=== PATIENT | male | born 1965 | race Caucasian/White ===

== ENCOUNTER 2023-08-28 07:15 | Outpatient (OUT) | payer OTHER, SELFPAY ==
[2023-08-28 08:08] LABS: Alanine Aminotransferase 61 U/L (16-63); Albumin Globulin Ratio 1.3; Albumin Level 4.1 g/dL (3.4-5.0); Alkaline Phosphatase 85 U/L (46-116); Aspartate Amino Transferase 26 U/L (15-37); Bilirubin Direct 0.2 mg/dL (0.0-0.2); Bilirubin Total 0.7 mg/dL (0.2-1.0); Chol HDL Ratio 3.1; Cholesterol 172 mg/dL (<=200); Globulin 3.1 g/dL; HDL Cholesterol 55 mg/dL (40-60); LDL Cholesterol Calculated 95.4 mg/dL; Total Protein 7.2 g/dL (6.4-8.2); Triglycerides 108 mg/dL (<=150); VLDL CHOLESTEROL 21.6 mg/dL
== END 2023-08-28 07:16 | disposition home or self-care (01) ==
PROVIDERS: PCP Family Medicine; Visit Provider Nurse Practitioner
DX: R94.39 Abnormal result of other cardiovascular function study (principal); E78.2 Mixed hyperlipidemia
CPT/HCPCS: 36415; 80061; 80076

== ENCOUNTER 2024-09-26 08:22 | Outpatient (OUT) | payer OTHER, SELFPAY ==
--- OUTSIDE RECORDS SUMMARY | 2024-09-26 08:24 | XMS_ITS | CCD ---
Author Organization [facility] Care Team Providers Care Environmental Health Physician Name Role Phone JAYY ., DR MERINO Primary Care Unavailable NÉSTOR, SHRAVAN Admitting Unavailable NÉSTOR, SHRAVAN Attending Unavailable NÉSTORSHRAVAN Consulting Unavailable HOY ., DR MERINO Primary Care Unavailable HOY ., DR MERINO Admitting Unavailable HOY ., DR MERINO Attending Unavailable HOY ., DR MERINO Consulting Unavailable HOY ., DR MERINO Primary Care Unavailable HOY ., DR MERINO Admitting Unavailable HOY ., DR MERINO Attending Unavailable HOY ., DR MERINO Consulting Unavailable HOY ., DR MERINO Primary Care Unavailable HOY ., DR MERINO Admitting Unavailable HOY ., DR MERINO Attending Unavailable ALGMALINI, ESTELLE Attending Unavailable ALGMALINI, ESTELLE Attending Unavailable Wilber Lou MD Primary Care Provider [phone] BREANNA CARDOZO Attending Unavailable CARDOZO, BREANNA Adkins Referring Unavailable CARDOZO, BREANNA Adkins Attending Unavailable CARDOZO, BREANNA Adkins Referring Unavailable CARDOZO, BREANNA Adkins Attending Unavailable CARDOZO, BREANNA Adkins Attending Unavailable CARDOZO, BREANNA Adkins Attending Unavailable Allergies Allergy Classification Reported Allergen(s) Allergy Type Date of Onset Reaction(s) Facility (8 sources) atorvastatin; Translations: [ATORVASTATIN] Drug Allergy 04-04-2024 [facility] Repository Medications Current Medications Medication Drug Class(es) Dates Sig (Normalized) Sig (Original) aspirin 81 mg delayed release oral tablet (7 sources) Platelet Aggregation Inhibitor, Nonsteroidal Anti-inflammatory Drug Start: 04-09-2024 aspirin 81 MG EC tablet 1 (one) time each day at the same time 04/09/2024 Active hydroCHLOROthiazide 25 mg / losartan potassium 100 mg oral tablet (7 sources) Thiazide Diuretic, Angiotensin 2 Receptor Mary Start: 02-18-2024 losartan-hydroCHLO ROthiazide (Hyzaar) 100-25 MG tablet 02/18/2024 Active meloxicam 15 mg oral tablet (7 sources) Nonsteroidal Anti-inflammatory Drug Start: 12-07-2023 End: 12-06-2024 take 1 tablet by mouth in the morning meloxicam (Mobic) 15 MG tablet Indications: Primary osteoarthritis of both knees Take 1 tablet (15 mg) by mouth in the morning. 90 tablet 3 12/07/2023 12/06/2024 Active mirtazapine 30 mg oral tablet (3 sources) Start: 07-22-2024 mirtazapine (Remeron) 30 MG tablet 07/22/2024 Active rosuvastatin calcium 10 mg oral tablet (3 sources) HMG-CoA Reductase Inhibitor Start: 06-11-2024 rosuvastatin (Crestor) 10 MG tablet 06/11/2024 Active Completed/Discontinued Medications Medication Drug Class(es) Dates Sig (Normalized) Sig (Original) 2 ml hylan g-f 20 8 mg/ml prefilled syringe (8 sources) Start: 08-14-2024 End: 08-14-2024 hylan (Synvisc) injection 2 mL Start: 08-14-2024 End: 08-14-2024 2 mL, Once PRN Procedure, St arting on Iesha 08/14/24 at 1117, For 1 dose Start: 08-07-2024 End: 08-07-2024 hylan (Synvisc) injection 16 mg Start: 08-07-2024 End: 08-07-2024 16 mg, Once PRN Procedure, S tarting on Iesha 08/07/24 at 1506, For 1 dose Problems Problem Classification Problem Date Documented Date Episodic/Chronic Joint disorders and dislocations; trauma-related (2 sources) Acute tear of medial meniscus of right knee; Translations: [Other tear of medial meniscus, current injury, right knee, subsequent encounter] 07-31-2024 Episodic Nonspecific chest pain (4 sources) Chest pain, unspecified; Translations: [CHEST PAIN UNSPECIFIED] Onset: 02-07-2023 Episodic Osteoarthritis (5 sources) Primary gonarthrosis, bilateral; Translations: [Bilateral primary osteoarthritis of knee] 07-31-2024 Chronic Other screening for suspected conditions (not mental disorders or infectious disease) (2 sources) Abnormal result of other cardiovascular function study; Translations: [Encounter for screening for malignant neoplasm of prostate] Onset: 10-18-2022 Episodic Results Test Name Value Interpretation Reference Range Facility L Inj/Asp: bilateral kneeon 08-14-2024 Shernie Sainz MA 08/14/2024 12:04 PM L Inj/Asp: bilateral knee on 08/14/2024 11:17 AM Indications: pain Details: 22 G needle Medications (Right): 2 mL hylan 16 MG/2ML Medications (Left): 2 mL hylan 16 MG/2ML Consent was given by the patient. [facility] L Inj/Asp: bilateral kneeon 08-07-2024 Jessica FRANCINE Maddox 08/07/2024 3:30 PM L Inj/Asp: bilateral knee on 08/07/2024 3:06 PM Indications: pain Details: 22 G needle Medications (Right): 16 mg hylan 16 MG/2ML Medications (Left): 16 mg hylan 16 MG/2ML [facility] MR KNEE RIGHT WO IV CONTRAST on 07-11-2024 MR KNEE RIGHT WO IV CONTRAST Exam: MR KNEE RIGHT WO IV CONTRAST History: Knee pain Technique: Multiplanar multisequence MRI of the knee was performed without contrast. Comparison: Radiographs May 20, 2024 Findings: Quadriceps and patellar tendons are intact. Small joint effusion. Mild nonspecific prepatellar/infrapate llar subcutaneous soft tissue edema. Anterior and posterior cruciate ligaments are intact. Thin 12 mm intrasubstance ganglion within the proximal ACL. The medial collateral ligament, lateral collateral ligament, and popliteus are intact. Complex tear of the body through posterior horn of the medial meniscus including flap tear of the body with displaced meniscus flap located inferiorly along the periphery of the medial tibial plateau. The lateral meniscus is intact. No well-defined or measurable cartilage defect. Popliteal fossa structures are intact. No Campos cyst. IMPRESSION: Complex tear of the body through posterior horn of the medial meniscus. ELECTRONICALLY SIGNED BY: Papi Cerrato, DO Normal Not Available Comment on above: Order Comment: No to all MRI questions Office Visiton 04-04-2024 Follow-up visit [id number] Tree Helms 1965 M Date Provider Department Center 04/04/2024 [facility] Family History Problem Relation Age of Onset Coronary artery disease Father Other Father Coronary artery disease Sister Other Sister Coronary artery disease Paternal Grandfather Family Status - Relation Status Age at Father Sister Paternal Grandfather Level of Service:28599 [place] OFFICE/OUTPATIENT ESTABLISHED MOD MDM 30 MIN Normal [facility] Office Visiton 10-26-2023 Follow-up visit [id number] Tree Helms 1965 M Date Provider Department Center 10/26/2023 [facility]-ESTELLE [facility] Family History Problem Relation Age of Onset Coronary artery disease Father Other Father Coronary artery disease Sister Other Sister Coronary artery disease Paternal Grandfather Family Status - Relation Status Age at Father Sister Paternal Grandfather Level of Service:78712 [place] OFFICE/OUTPATIENT ESTABLISHED MOD MDM 30 MIN Normal [facility] ECHOCARDIO M/2D COMPLETEon 0 03-13-2023 ECHOCARDIO M/2D COMPLETE Patient: TREE HELMS. Exam Date: 03/13/2023 : 1965 Gender:M Ordering : SHRAVAN PALM Admission #: [id number] Family : Order #: [id number] CLICK HERE TO VIEW EXAM ECHOCARDIOGRAM REPORT PROCEDURE: CARDIO PULMONARY ECHOCARDIO M/2D COMP INDICATIONS: Abnormal cardiovascular stress test, Primary HTN, Chest pain COMPARISON: None. DESCRIPTION: COMPLETE ECHOCARDIOGRAM Real-time transthoracic echocardiography with 2D, M-mode, spectral and color flow Doppler performed. QUALITY: Technical quality was good. LEFT VENTRICLE: Normal chamber size. Moderate concentric left ventricular hypertrophy. Global left ventricular systolic function is normal. LV EF: Calculated left ventricular ejection fraction is 60% DIASTOLIC: Normal diastolic function. ATRIAL SEPTUM: LEFT ATRIUM: Normal chamber size. RIGHT ATRIUM: Normal chamber size. RIGHT VENTRICLE: Normal chamber size. Normal right ventricular systolic function. TRICUSPID VALVE: Normal mobility and thickness. No stenosis with mild regurgitation. No evidence of pulmonary hypertension. RVSP 25 mmHg MITRAL VALVE: Normal mobility and thickness. No evidence of mitral valve stenosis. There is no mitral annular calcification. No mitral regurgitation. AORTIC VALVE: Normal trileaflet appearance. No visible sclerosis. Normal leaflet mobility. No evidence of aortic valve stenosis. Trivial aortic regurgitation. AORTIC ROOT: Normal diameter and appearance. PULMONIC VALVE: Normal thickness and mobility. No stenosis. Trivial regurgitation. PERICARDIUM: No evidence of pericardial effusion. IVC: Collapses with inspirations. Normal size PLEURA: CONCLUSION: 1. Moderate concentric left ventricular hypertrophy. Normal LV systolic function. LVEF is 60%. 2. Normal diastolic function. 3. Normal right ventricular size and systolic function. 4. Mild tricuspid regurgitation. 5. Normal right-sided pressures. Adult Echocardiography Procedure Report Left Ventricle LVEDD (3.7 - 5.6 cm): 4.24 cm LVESD (2.2 - 4.0 cm): 3.00 cm LVIVS thickness (0.6 - 1.2 cm): 1.57 cm LVPW thickness (0.5 - 1.0 cm): 1.38 cm e': 0.11 m/s E - e': 5.62 LVOT Max Gradient: 3.97 mm[Hg] Peak Velocity (LVOT): 1.00 m/s Mean Velocity (LVOT): 0.68 m/s LVOT Diameter 2.10 cm Left Ventricular Ejection Fraction: 60 % Left Atrium LA Volume Index (2D A2C): 60.06 ml, 60.06 ml Left Atrium Systolic Dimension: 3.54 cm Mitral Valve MV E to A Ratio: 1.09 Mitral Valve A-Wave Peak Velocity: 0.55 m/s Mitral Valve E-Wave Peak Velocity: 0.60 m/s Right Ventricle RV Internal Diastolic Dimension: 4.02 cm Aorta AO Root Diam: 3.19 cm Ascending Ao Diam: 3.12 cm Aortic Valve AoV Area (Peak Jose): 3.10 cm2, 3.10 cm2 AoV Area (VTI): 3.20 cm2, 3.20 cm2 Peak Velocity(Antegrade Flow): 1.12 m/s Peak Gradient(Antegrade Flow): 4.98 mm[Hg] Mean Velocity(Antegrade Flow): 0.75 m/s Mean Gradient(Antegrade Flow): 2.57 mm[Hg] Velocity Time Integral: 23.90 cm Tricuspid Valve Peak Velocity (Regurgitant Flow): 2.37 m/s, 2.30 m/s, 2.36 m/s Peak Velocity: 0.64 m/s Pulmonic Valve Mean Gradient: 2.48 mm[Hg] Mean Velocity: 0.70 m/s Peak Velocity: 1.26 m/s, 1.29 m/s Peak Gradient: 6.63 mm[Hg], 6.31 mm[Hg] Right Atrium Right Atrium Systolic Pressure: 67.73 ml, 67.73 ml Dictated by: Lamont Wetzel M.D. on 03/13/2023 at 20:06 Approved by: Lamont Wetzel M.D. on 03/13/2023 at 20:10 Normal [facility] NM STRESS/REST MULTIon 02-07 NM STRESS/REST MULTI Patient: ESTRELLITA HELMS Exam Date: 02/07/2023 : 1965 Gender:M Ordering : DR WILBER LOU . Admission #: [id number] Family : Order #: [id number] CLICK HERE TO VIEW EXAM RADIOLOGY REPORT PROCEDURE: RADIONUCLIDE IMAGING STRESS/REST MULTI COMPARISON: None. INDICATIONS: Chest pain TECHNIQUE: Exam Description: Stress/Rest one day protocol gated SPECT Rest Imagin.1 mCi Tc-99m Cardiolite IV on 02/07/2023 Stress Imaging 30.9 mCi Tc-99m Cardiolite IV on 02/07/2023 Exercise Protocol: Samuel Heart Rate (bpm): Rest: 61 Max: 142 PMHR: 87 Blood Pressure: Rest: 124/86 Max: 204/92 Exercise Time: Minutes: 10 Seconds: 30 Stage Reached: Stage: 4 Mets 11.4 Symptoms: Rest and peak stress ECG findings were abnormal and the exercise portion of the study was abnormal per attending physician Dr. Burroughs due to EKG changes. For more details please see separate cardiac stress test report. FINDINGS: QUALITY OF STUDY: Excellent. PERFUSION DEFECT: None. LOCATION: N/A SIZE: N/A. SEVERITY: N/A. TYPE: N/A. WALL MOTION: Normal. LV SIZE: Normal. 89 mL. TID / TCD: None; 0.9 LVEF: Normal. Calculated EF 68%. SUMMARY: Myocardial perfusion imaging study is NORMAL. CONCLUSION: 1. Normal myocardial perfusion scan with no reversible ischemia 2. Abnormal exercise test due to EKG changes Dictated by: Harrison Person MD on 02/12/2023 at 09:06 Approved by: Harrison Person MD on 02/12/2023 at 09:09 Normal [facility] INSULINon 10-14-2022 Insulin 14.4 uIU/mL Normal 2.6-24.9 [facility] Comment on above: Performed By: #### I NSULIN #### [facility] [address] [address] [address] Marlen Vera CBC AUTO DIFFon 10-13-2022 BASO # 0.1 103/ul Normal 0.0-0.1 [facility] Comment on above: Performed By: #### C BC #### [facility] [address] [address] [address] Marlen Vera Basophils/100 WBC (Bld) 0.7 % Normal 0.2-2.0 [facility] Comment on above: Performed By: #### C BC #### [facility] [address] [place] [address] Dr. Marlen Vera EO # 0.6 103/ul Normal 0.0-0.7 [facility] Comment on above: Performed By: #### C BC #### [facility] [address] [place] [address] Dr. Marlen Vera Eosinophils/100 WBC (Bld) 7.9 % Critically high 0.9-7.0 [facility] Comment on above: Performed By: #### C BC #### [facility] [address] [address] [address] Marlen Vera Erythrocyte distribution width (RBC) [Ratio] 12.1 % Normal 11.0-15.0 [facility] Comment on above: Performed By: #### C BC #### [facility] [address] [place] [address] Dr. Marlen Vera Hematocrit (Bld) [Volume fraction] 43.3 % Normal 42.0-54.0 [facility] Comment on above: Performed By: #### C BC #### [facility] [address] [address] [address] Marlen Vera Hemoglobin (Bld) [Mass/Vol] 15.2 g/dL Normal 14.0-18.0 [facility] Comment on above: Performed By: #### C BC #### [facility] [address] [place] [address] Dr. Marlen Vera IG # 0.03 10e3/ul Normal 0.00-0.03 [facility] Comment on above: Performed By: #### C BC #### [facility] [address] [place] [address] Dr. Marlen Vera IG % 0.4 % Normal 0.0-0.5 [facility] Comment on above: Performed By: #### C BC #### [facility] [address] [place] [address] Dr. Marlen Vera LYMPH # 2.2 103/ul Normal 1.2-3.8 [facility] Comment on above: Performed By: #### C BC #### [facility] [address] [place] [address] Dr. Marlen Vera Lymphocytes/100 WBC (Bld) 29.5 % Normal 20.5-60.0 [facility] Comment on above: Performed By: #### C BC #### [facility] [address] [place] [address] Dr. Marlen Vera MANUAL DIFF REQ NO Normal [facility] Comment on above: Performed By: #### C BC #### [facility] [address] [place] [address] Dr. Marlen Vera MCH (RBC) [Entitic mass] 31.1 pg Normal 25.9-34.0 [facility] Comment on above: Performed By: #### C BC #### [facility] [address] [place] [address] Dr. Marlen Vera MCHC (RBC) [Mass/Vol] 35.1 g/dL Normal 29.9-35.2 [facility] Comment on above: Performed By: #### C BC #### [facility] [address] [place] [address] Dr. Marlen Vera MCV (RBC) [Entitic vol] 88.5 fL Normal 80.0-94.0 [facility] Comment on above: Performed By: #### C BC #### [facility] [address] [place] [address] Dr. Marlen Vera MONO # 0.7 103/ul Normal 0.3-0.8 [facility] Comment on above: Performed By: #### C BC #### [facility] [address] [place] [address] Dr. Marlen Vera Monocytes/100 WBC (Bld) 8.9 % Normal 1.7-12.0 [facility] Comment on above: Performed By: #### C BC #### [facility] [address] [place] [address] Dr. Marlen Vera NEUT # 3.9 103/ul Normal 1.4-6.5 [facility] Comment on above: Performed By: #### C BC #### [facility] [address] [place] [address] Dr. Marlen Vera Neutrophils/100 WBC (Bld) 52.6 % Normal 43.0-75.0 [facility] Comment on above: Performed By: #### C BC #### [facility] [address] [place] [address] Dr. Marlen Vera Platelet mean volume (Bld) [Entitic vol] 10.0 fL Normal 9.5-13.5 [facility] Comment on above: Performed By: #### C BC #### [facility] [address] [place] [address] Dr. Marlen Vera PLT 168 103/ul Normal 150-450 [facility] Comment on above: Performed By: #### C BC #### [facility] [address] [place] [address] Dr. Marlen Vera RBC 4.89 106/ul Normal 4.70-6.10 [facility] Comment on above: Performed By: #### C BC #### [facility] [address] [place] [address] Dr. Marlen Vera WBC 7.3 103/ul Normal 4.0-11.0 [facility] Comment on above: Performed By: #### C BC #### [facility] [address] [place] [address] Dr. Marlen Vera GLYCOHEMOGLOBIN A1Con 2021 ADA RECOMMENDATION SEE BELOW Normal [facility] Comment on above: Result Comment: ADA RECOMMENDED LIMIT 4.0 - 6.0 ADA THERAPEUTIC TARGET < 7.0 ACTION SUGGESTED > 7.0 Performed By: #### A 1C #### [facility] [address] [address] [address] Marlen Vera Glucose [Mass/Vol] 114 mg/dL Normal [facility] Comment on above: Performed By: #### A 1C #### [facility] [address] [address] [address] Marlen Vera HbA1c (Bld) [Mass fraction] 5.6 % Normal 4.5-6.2 [facility] Comment on above: Performed By: #### A 1C #### [facility] [address] [address] [address] Marlen Vera LIPID PROFILEon 10-13-2022 CHOL-HDL RATIO NORM SEE BELOW Normal [facility] Comment on above: Result Comment: 3.3 - 4.4 LOW RISK 4.4 - 7.1 AVERAGE RISK 7.1 - 11.0 MODERATE RISK >11.0 HIGH RISK Performed By: #### L IPID, URIC, CMP #### [facility] [address] [address] [address] Marlen Vera Cholesterol [Mass/Vol] 194 mg/dL Normal <=200 [facility] Comment on above: Performed By: #### L IPID, URIC, CMP #### [facility] [address] [place] [address] Dr. Marlen Vera Cholesterol in HDL [Mass/Vol] 50 mg/dL Normal 40-60 [facility] Comment on above: Performed By: #### L IPID, URIC, CMP #### [facility] [address] [address] [address] Marlen Vera Cholesterol in LDL [Mass/Vol] 122.4 mg/dL Normal [facility] Comment on above: Performed By: #### L IPID, URIC, CMP #### [facility] [address] [place] [address] Dr. Marlen Vera Cholesterol.total/Ch olesterol in HDL [Mass ratio] 3.9 {ratio} Normal [facility] Comment on above: Performed By: #### L IPID, URIC, CMP #### [facility] [address] [address] [address] Marlen Vera HDL NORMAL > or = 60 mg/dl - LO W CARDIOVASCULAR RISK <40 mg/dl - HIGH CARDIOVASCULAR RISK Normal [facility] Comment on above: Performed By: #### L IPID, URIC, CMP #### [facility] [address] [address] [address] Marlen Vera LDL CALC NORMAL SEE BELOW Normal [facility] Comment on above: Result Comment: <100 mg/dl OPTIMAL 100 - 129 mg/dl NEAR OR ABOVE OPTIMAL 130 - 159 mg/dl BORDERLINE HIGH 160 - 189 mg/dl HIGH >190 mg/dl VERY HIGH Performed By: #### L IPID, URIC, CMP #### [facility] [address] [place] [address] Dr. Marlen Vera Triglyceride [Mass/Vol] 108 mg/dL Normal <=150 [facility] Comment on above: Performed By: #### L IPID, URIC, CMP #### [facility] [address] [place] [address] Dr. Marlen Vera VLDL CALC 21.6 mg/dL Normal [facility] Comment on above: Performed By: #### L IPID, URIC, CMP #### [facility] [address] [place] [address] Dr. Marlen Vera PROF 14(COMP METB)on 022 Albumin [Mass/Vol] 4.0 g/dL Normal 3.4-5.0 [facility] Comment on above: Performed By: #### L IPID, URIC, CMP #### [facility] [address] [place] [address] Dr. Marlen Vera Albumin/Globulin [Mass ratio] 1.3 {ratio} Normal [facility] Comment on above: Performed By: #### L IPID, URIC, CMP #### [facility] [address] [place] [address] Dr. Marlen Vera ALP [Catalytic activity/Vol] 71 U/L Normal 46-116 [facility] Comment on above: Performed By: #### L IPID, URIC, CMP #### [facility] [address] [place] [address] Dr. Marlen Vera ALT [Catalytic activity/Vol] 29 U/L Normal 16-63 [facility] Comment on above: Performed By: #### L IPID, URIC, CMP #### [facility] [address] [address] [address] Mareln Vera Anion gap [Moles/Vol] 10.4 mmol/L Normal [facility] Comment on above: Performed By: #### L IPID, URIC, CMP #### [facility] [address] [address] [address] Marlen Vera AST [Catalytic activity/Vol] 17 U/L Normal 15-37 [facility] Comment on above: Performed By: #### L IPID, URIC, CMP #### [facility] [address] [place] [address] Dr. Marlen Vera Bilirubin [Mass/Vol] 0.6 mg/dL Normal 0.2-1.0 [facility] Comment on above: Performed By: #### L IPID, URIC, CMP #### [facility] [address] [place] [address] Dr. Marlen Vera Calcium [Mass/Vol] 9.3 mg/dL Normal 8.5-10.1 [facility] Comment on above: Performed By: #### L IPID, URIC, CMP #### [facility] [address] [place] [address] Dr. Marlen Vera Chloride [Moles/Vol] 102 mmol/L Normal 98-107 [facility] Comment on above: Performed By: #### L IPID, URIC, CMP #### [facility] [address] [place] [address] Dr. Marlen Vera CO2 [Moles/Vol] 28.8 mmol/L Normal 21.0-32.0 [facility] Comment on above: Performed By: #### L IPID, URIC, CMP #### [facility] [address] [place] [address] Dr. Marlen Vera Creatinine [Mass/Vol] 0.80 mg/dL Normal 0.70-1.30 [facility] Comment on above: Performed By: #### L IPID, URIC, CMP #### [facility] [address] [address] [address] Marlen Vera EGFR-AF ISRAELI >60 Normal >=60 [facility] Comment on above: Performed By: #### L IPID, URIC, CMP #### [facility] [address] [address] [address] Marlen Vera EGFR-NON AF ISRAELI >60 Normal >=60 [facility] Comment on above: Performed By: #### L IPID, URIC, CMP #### [facility] [address] [address] [address] Marlen Vera Globulin (S) [Mass/Vol] 3.2 g/dL Normal [facility] Comment on above: Performed By: #### L IPID, URIC, CMP #### [facility] [address] [address] [address] Marlen Vera Glucose [Mass/Vol] 112 mg/dL Critically high 74-106 [facility] Comment on above: Performed By: #### L IPID, URIC, CMP #### [facility] [address] [address] [address] Marlen Vera Potassium [Moles/Vol] 4.2 mmol/L Normal 3.5-5.1 [facility] Comment on above: Performed By: #### L IPID, URIC, CMP #### [facility] [address] [address] [address] Marlen Vera Protein [Mass/Vol] 7.2 g/dL Normal 6.4-8.2 [facility] Comment on above: Performed By: #### L IPID, URIC, CMP #### [facility] [address] [address] [address] Marlen Vera Sodium [Moles/Vol] 137 mmol/L Normal 136-145 [facility] Comment on above: Performed By: #### L IPID, URIC, CMP #### [facility] [address] [address] [address] Marlen Vera Urea nitrogen [Mass/Vol] 15.0 mg/dL Normal 7.0-18.0 [facility] Comment on above: Performed By: #### L IPID, URIC, CMP #### [facility] [address], [place] [address] Dr. Marlen Vera Urea nitrogen/Creatinine [Mass ratio] 18.8 mg/mg Normal [facility] Comment on above: Performed By: #### L IPID, URIC, CMP #### [facility] [id number] Marlen Vera URIC ACID SERUMon 10-13-2022 Urate [Mass/Vol] 5.9 mg/dL Normal 3.5-7.2 [facility] Comment on above: Performed By: #### L IPID, URIC, CMP #### [facility] [address] [address] [address] Marlen Vera Vital Signs Date Time Vital Sign Value Performing Clinician Faci lity 08-14-2024 11:14-0400 Body height 177.8 cm Breanna Cardozo DO Work Phone: [facility] 08-14-2024 11:14-0400 Body mass index (BMI) [Ratio] 32.28 kg/m2 Breanna Truckily DO Work Phone: [facility] 08-14-2024 11:14-0400 Body weight 102.06 kg Breanna Cardozo DO Work Phone: [facility] 08-07-2024 15:04-0400 Body height 177.8 cm Breanna Cardozo DO Work Phone: [facility] 08-07-2024 15:04-0400 Body mass index (BMI) [Ratio] 32.28 kg/m2 Breanna Cardozo DO Work Phone: [facility] 08-07-2024 15:04-0400 Body weight 102.06 kg Breanna Cardozo DO Work Phone: [facility] 07-31-2024 13:57-0400 Body height 177.8 cm Breanna Cardozo DO Work Phone: [facility] 07-31-2024 13:57-0400 Body mass index (BMI) [Ratio] 32.28 kg/m2 Breanna Beatrice DO Work Phone: [facility] 07-31-2024 [id number] Body weight 102.06 kg Breanna Cardozo DO Work Phone: [facility] Encounters Encounter Date Encounter Type Care Provider Facility Start: 08-14-2024 End: 08-14-2024 Bamboo flowsheet Breanna Cardozo DO Work Phone: [facility] Start: 08-14-2024 End: 08-14-2024 Bamboo flowsheet Breanna Cardozo DO Work Phone: [facility] Start: 08-14-2024 End: 08-14-2024 Patient encounter procedure Breanna Cardozo DO Work Phone: [facility] Comment on above: Bilateral primary os teoarthritis of knee (Primary Dx) Start: 08-14-2024 End: 08-14-2024 ambulatory BREANNA CARDOZO Not Available Start: 08-07-2024 End: 08-07-2024 Patient encounter procedure Breanna Cardozo DO Work Phone: [facility] Comment on above: Bilateral primary os teoarthritis of knee (Primary Dx) Start: 08-07-2024 End: 08-07-2024 ambulatory BREANNA CARDOZO Not Available Start: 08-07-2024 End: 08-07-2024 Bamboo flowsheet Breanna Cardozo DO Work Phone: [facility] Start: 08-07-2024 End: 08-07-2024 Bamboo flowsheet Breanna Cardozo DO Work Phone: [facility] Start: 07-31-2024 End: 07-31-2024 Bamboo flowsheet Breanna Cardozo DO Work Phone: [facility] Start: 07-31-2024 End: 07-31-2024 Bamboo flowsheet Breanna Cardozo DO Work Phone: [facility] Start: 07-31-2024 End: 07-31-2024 ambulatory BREANNA CARDOZO Not Available Start: 07-31-2024 End: 07-31-2024 Patient encounter procedure Breanna Cardozo DO Work Phone: [facility] Comment on above: Bilateral primary os teoarthritis of knee (Primary Dx); Acute medial meniscus tear of right knee, subsequent encounter Start: 07-11-2024 End: 07-11-2024 ambulatory BREANNA CARDOZO Not Available Start: 06-03-2024 End: 06-03-2024 ambulatory BREANNA CARDOZO Not Available Start: 05-20-2024 End: 05-20-2024 ambulatory BREANNA CARDOZO Not Available Start: 04-04-2024 End: 04-04-[address] [facility] Start: 10-26-2023 End: 10-26-[address] [facility] Start: 03-13-2023 End: 03-14-[address] WILBER LOU . Facility: Start: 02-07-2023 End: 02-08-[address] WILBER LOU . Facility:[facility] Start: 01-16-2023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
[2024-09-26 09:09] LABS: Chol HDL Ratio 3.4; Cholesterol 175 mg/dL (<=200); HDL Cholesterol 52 mg/dL (40-60); LDL Cholesterol Calculated 104.6 mg/dL; Triglycerides 92 mg/dL (<=150); VLDL CHOLESTEROL 18.4 mg/dL
[2024-09-26 09:16] LABS: Alanine Aminotransferase 36 U/L (16-63); Albumin Globulin Ratio 1.3; Albumin Level 3.8 g/dL (3.4-5.0); Alkaline Phosphatase 82 U/L (46-116); Anion Gap 11.8; Aspartate Amino Transferase 18 U/L (15-37); BUN Creatinine Ratio 10.4; Bilirubin Total 0.6 mg/dL (0.2-1.0); Carbon Dioxide 30.1 mmol/L (21.0-32.0); Chloride 104 mmol/L (98-107); Estimated GFR (African America >60 (>=60 mL/min/1.73m^2); Estimated GFR (Non-African Ame >60 (>=60 mL/min/1.73m^2); Globulin 2.9 g/dL; Glucose 110 mg/dL (74-106); Potassium 3.9 mmol/L (3.5-5.1); Sodium 142 mmol/L (136-145); Total Protein 6.7 g/dL (6.4-8.2)
== END 2024-09-26 08:23 | disposition home or self-care (01) ==
LOC: LAB 08:22
PROVIDERS: PCP Family Medicine; Visit Provider Internal Medicine Cardiovascular Disease
DX: E78.5 Hyperlipidemia, unspecified (principal)
CPT/HCPCS: 36415; 80053; 80061

== ENCOUNTER 2025-02-09 06:21 | Outpatient (OUT) | payer OTHER, SELFPAY ==
--- OUTSIDE RECORDS SUMMARY | 2025-02-09 06:26 | XMS_ITS | CCD ---
Author Organization [facility] Care Team Providers Care Roofing Supervisor Name Role Phone JAYY ., DR MERINO Primary Care Unavailable NÉSTOR, SHRAVAN Admitting Unavailable NÉSTOR, SHRAVAN Attending Unavailable NÉSTOR, SHRAVAN Consulting Unavailable HOY ., DR MERINO Primary [...] Unavailable HOY ., DR MERINO Attending Unavailable Mansoory Wilber HANCOCK Primary Care Provider [phone] BREANNA CARDOZO Attending Unavailable CARDOZO, BREANNA Adkins Referring Unavailable CARDOZO, BREANNA Adkins Attending Unavailable CARDOZO, BREANNA Adkins Referring Unavailable CARDOZO, BREANNA Adkins Attending Unavailable CARDOZO, BREANNA Adkins Attending Unavailable CARDOZO, BREANNA Adkins Attending Unavailable LUISANA, ESTELLE Attending Unavailable ALGMALINI, ESTELLE Attending Unavailable LUISANA, ESTELLE Attending Unavailable Unavailable Primary Care Provider Unavailabl e Allergies Allergy Classification Reported Allergen(s) Allergy Type Date of Onset Reaction(s) Facility (9 sources) atorvastatin; Translations: [ATORVASTATIN] Drug Allergy 04-04-2024 [facility] Healthcare Medications Current Medications Medication Drug Class(es) Dates Sig (Normalized) Sig (Original) aspirin 81 mg delayed release oral tablet (8 sources) Platelet Aggregation Inhibitor, Nonsteroidal Anti-inflammatory Drug Start: 04-09-2024 aspirin 81 MG EC tablet 1 (one) time each day at the same time 04/09/2024 Active hydroCHLOROthiazide 25 mg / losartan potassium 100 mg oral tablet (8 sources) Thiazide Diuretic, Angiotensin 2 Receptor Mary Start: 02-18-2024 losartan-hydroCHLO ROthiazide (Hyzaar) 100-25 MG tablet 02/18/2024 Active meloxicam 15 mg oral tablet (8 sources) Nonsteroidal Anti-inflammatory Drug Start: 12-07-2023 End: [...] Test Name Value Interpretation Reference Range Facility Office Visiton 10-09-2024 Follow-up visit [id number] Tree Helms 1965 M Date Provider Department Center 10/09/2024 3848-LUISANA JOHNSUNSHINE CARD [facility] Family History Problem Relation Age of Onset Coronary artery disease Father Other Father Coronary artery disease Sister Other Sister Coronary artery disease Paternal Grandfather Family Status - Relation Status Age at Father Sister Paternal Grandfather Level of Service:04255 [place] OFFICE/OUTPATIENT ESTABLISHED MOD MDM 30 MIN Normal [facility] L Inj/Asp: bilateral kneeon 08-14-2024 Sherine Sainz MA 08/14/2024 12:04 PM L Inj/Asp: bilateral knee on 08/14/2024 11:17 AM Indications: pain Details: 22 G needle Medications (Right): 2 mL hylan 16 MG/2ML Medications (Left): 2 mL hylan 16 MG/2ML Consent was given by the patient. [facility] L Inj/Asp: bilateral kneeon 08-07-2024 Jessica Maddox MA 08/07/2024 3:30 PM L Inj/Asp: bilateral knee on 08/07/2024 3:06 PM Indications: pain Details: 22 G needle Medications (Right): 16 mg hylan 16 MG/2ML Medications (Left): 16 mg hylan 16 MG/2ML [facility] MR KNEE RIGHT WO IV CONTRAST on [...] of the medial meniscus. ELECTRONICALLY SIGNED BY: DO Santiago Balderas Not Available Comment on above: Order Comment: No to all MRI questions Office Visiton 04-04-2024 Follow-up visit [id number] Tree Helms 1965 M Date Provider Department [facility] Problem Relation Age of Onset Coronary artery disease Father Other Father Coronary artery disease Sister Other Sister Coronary artery disease Paternal Grandfather Family Status - Relation Status Age at Father Sister Paternal Grandfather Level of Service:94716 [place] OFFICE/OUTPATIENT ESTABLISHED MOD MDM 30 MIN Normal [facility] Office Visiton 10-26-2023 Follow-up visit [id number] Tree Helms 1965 M Date Provider Department [facility] Family History Problem Relation Age of Onset Coronary artery disease Father Other Father Coronary artery disease Sister Other Sister Coronary artery disease Paternal Grandfather Family Status - Relation Status Age at Father Sister Paternal Grandfather Level of Service:06247 [place] OFFICE/OUTPATIENT ESTABLISHED MOD MDM 30 MIN Normal [facility] ECHOCARDIO M/2D COMPLETEon 0 03-13-2023 ECHOCARDIO M/2D COMPLETE Patient: TREE HELMS Exam Date: 03/13/2023 : 1965 Gender:M Ordering : SHRAVAN PALM Admission #: [id number] Family : Order #: [id number] CLICK HERE TO VIEW EXAM ECHOCARDIOGRAM REPORT [...] Wetzel M.D. on 03/13/2023 at 20:10 Normal [facility] NM STRESS/REST MULTIon 02-07 NM STRESS/REST MULTI Patient: ESTRELLITA HELMS Exam Date: 02/07/2023 : 1965 Gender:M Ordering : DR WILBER LOU . Admission #: [id number] Family : Order #: [id number] CLICK HERE TO VIEW EXAM RADIOLOGY REPORT [...] Person MD on 02/12/2023 at 09:09 Normal [facility] INSULINon 10-14-2022 Insulin 14.4 uIU/mL Normal 2.6-24.9 [facility] Comment on above: Performed By: #### I NSULIN #### [facility] [address] [place] [address] Dr. Marlen Vera CBC AUTO DIFFon 10-13-2022 BASO # 0.1 103/ul Normal 0.0-0.1 [facility] Comment on above: Performed By: #### C BC #### [facility] [address] [place] [address] Dr. Marlen Vera Basophils/100 WBC (Bld) 0.7 % Normal 0.2-2.0 [facility] Comment on above: Performed By: #### C BC #### [facility] [address] [place] [address] Dr. Marlen Vera EO # 0.6 103/ul Normal 0.0-0.7 [facility] Comment on above: Performed By: #### C BC #### [facility] [address] [place] [address] Dr. Marlen Vera Eosinophils/100 WBC (Bld) 7.9 % Critically high 0.9-7.0 [facility] Comment on above: Performed By: #### C BC #### [facility] [address] [place] [address] Dr. Marlen Vera Erythrocyte distribution width (RBC) [Ratio] 12.1 % Normal 11.0-15.0 [facility] Comment on above: Performed By: #### C BC #### [facility] [address] [place] [address] Dr. Marlen Vera Hematocrit (Bld) [Volume fraction] 43.3 % Normal 42.0-54.0 [facility] Comment on above: Performed By: #### C BC #### [facility] [address] [address] [address] Marlen Vera Hemoglobin (Bld) [Mass/Vol] 15.2 g/dL Normal 14.0-18.0 [facility] Comment on above: Performed By: #### C BC #### [facility] [address] [address] [address] Marlen Vera IG # 0.03 10e3/ul Normal 0.00-0.03 [facility] Comment on above: Performed By: #### C BC #### [facility] [address] [place] [address] Dr. Marlen Vera IG % 0.4 % Normal 0.0-0.5 [facility] Comment on above: Performed By: #### C BC #### [facility] [address] [place] [address] Dr. Marlen Vera LYMPH # 2.2 103/ul Normal 1.2-3.8 [facility] Comment on above: Performed By: #### C BC #### [facility] [address] [place] [address] Dr. Marlen Vera Lymphocytes/100 WBC (Bld) 29.5 % Normal 20.5-60.0 [facility] Comment on above: Performed By: #### C BC #### [facility] [address] [place] [address] Dr. Marlen Vera MANUAL DIFF REQ NO Normal [facility] Comment on above: Performed By: #### C BC #### [facility] [address] [place] [address] Dr. Marlen Vera MCH (RBC) [Entitic mass] 31.1 pg Normal 25.9-34.0 [facility] Comment on above: Performed By: #### C BC #### [facility] [address] [place] [address] Dr. Marlen Vera MCHC (RBC) [Mass/Vol] 35.1 g/dL Normal 29.9-35.2 [facility] Comment on above: Performed By: #### C BC #### [facility] [address] [address] [address] Marlen Vera MCV (RBC) [Entitic vol] 88.5 fL Normal 80.0-94.0 [facility] Comment on above: Performed By: #### C BC #### [facility] [address] [address] [address] Marlen Vera MONO # 0.7 103/ul Normal 0.3-0.8 [facility] Comment on above: Performed By: #### C BC #### [facility] [address] [place] [address] Dr. Marlen Vera Monocytes/100 WBC (Bld) 8.9 % Normal 1.7-12.0 [facility] Comment on above: Performed By: #### C BC #### [facility] [address] [place] [address] Dr. Marlen Vera NEUT # 3.9 103/ul Normal 1.4-6.5 [facility] Comment on above: Performed By: #### C BC #### [facility] [address] [place] [address] Dr. Marlen Vera Neutrophils/100 WBC (Bld) 52.6 % Normal 43.0-75.0 [facility] Comment on above: Performed By: #### C BC #### [facility] [address] [place] [address] Dr. Marlen Vera Platelet mean volume (Bld) [Entitic vol] 10.0 fL Normal 9.5-13.5 [facility] Comment on above: Performed By: #### C BC #### [facility] [address] [place] [address] Dr. Marlen Vera PLT 168 103/ul Normal 150-450 [facility] Comment on above: Performed By: #### C BC #### [facility] [address] [place] [address] Dr. Marlen Vera RBC 4.89 106/ul Normal 4.70-6.10 [facility] Comment on above: Performed By: #### C BC #### [facility] [address] [address] [address] Marlen Vera WBC 7.3 103/ul Normal 4.0-11.0 [facility] Comment on above: Performed By: #### C BC #### [facility] [address] [place] [address] Dr. Marlen Vera GLYCOHEMOGLOBIN A1Con 2021 ADA RECOMMENDATION SEE BELOW Normal [facility] Comment on above: Result Comment: ADA RECOMMENDED LIMIT 4.0 - 6.0 ADA THERAPEUTIC TARGET < 7.0 ACTION SUGGESTED > 7.0 Performed By: #### A 1C #### [facility] [address] [place] [address] Dr. Marlen Vera Glucose [Mass/Vol] 114 mg/dL Normal [facility] Comment on above: Performed By: #### A 1C #### [facility] [address] [place] [address] Dr. Marlen Vera HbA1c (Bld) [Mass fraction] 5.6 % Normal 4.5-6.2 [facility] Comment on above: Performed By: #### A 1C #### [facility] [address] [place] [address] Dr. Marlen Vera LIPID PROFILEon 10-13-2022 CHOL-HDL RATIO NORM SEE BELOW Normal [facility] Comment on above: Result Comment: 3.3 - 4.4 LOW RISK 4.4 - 7.1 AVERAGE RISK 7.1 - 11.0 MODERATE RISK >11.0 HIGH RISK Performed By: #### L IPID, URIC, CMP #### [facility] [address] [place] [address] Dr. Marlen Vera Cholesterol [Mass/Vol] 194 mg/dL Normal <=200 [facility] Comment on above: Performed By: #### L IPID, URIC, CMP #### [facility] [address] [place] [address] Dr. Marlen Vera Cholesterol in HDL [Mass/Vol] 50 mg/dL Normal 40-60 [facility] Comment on above: Performed By: #### L IPID, URIC, CMP #### [facility] [address] [place] [address] Dr. Marlen Vera Cholesterol in LDL [Mass/Vol] 122.4 mg/dL Normal [facility] Comment on above: Performed By: #### L IPID, URIC, CMP #### [facility] [address] [address] [address] Marlen Vera Cholesterol.total/Ch olesterol in HDL [Mass ratio] 3.9 {ratio} Normal [facility] Comment on above: Performed By: #### L IPID, URIC, CMP #### [facility] [address] [address] [address] Marlen Vera HDL NORMAL > or = 60 mg/dl - LO W CARDIOVASCULAR RISK <40 mg/dl - HIGH CARDIOVASCULAR RISK Normal [facility] Comment on above: Performed By: #### L IPID, URIC, CMP #### [facility] [address] [address] [address] Marlen Vera LDL CALC NORMAL SEE BELOW Normal [facility] Comment on above: Result Comment: <100 mg/dl OPTIMAL 100 - 129 mg/dl NEAR OR ABOVE OPTIMAL 130 - 159 mg/dl BORDERLINE HIGH 160 - 189 mg/dl HIGH >190 mg/dl VERY HIGH Performed By: #### L IPID, URIC, CMP #### [facility] [address] [address] [address] Marlen Vera Triglyceride [Mass/Vol] 108 mg/dL Normal <=150 [facility] Comment on above: Performed By: #### L IPID, URIC, CMP #### [facility] [address] [address] [address] Marlen Vera VLDL CALC 21.6 mg/dL Normal [facility] Comment on above: Performed By: #### L IPID, URIC, CMP #### [facility] [address] [address] [address] Marlen Vera PROF 14(COMP METB)on 022 Albumin [Mass/Vol] 4.0 g/dL Normal 3.4-5.0 [facility] Comment on above: Performed By: #### L IPID, URIC, CMP #### [facility] [address] [address] [address] Marlen Vera Albumin/Globulin [Mass ratio] 1.3 {ratio} Normal [facility] Comment on above: Performed By: #### L IPID, URIC, CMP #### [facility] [address] [address] [address] Marlen Vera ALP [Catalytic activity/Vol] 71 U/L Normal 46-116 [facility] Comment on above: Performed By: #### L IPID, URIC, CMP #### [facility] [address] [place] [address] Dr. Marlen Vera ALT [Catalytic activity/Vol] 29 U/L Normal 16-63 [facility] Comment on above: Performed By: #### L IPID, URIC, CMP #### [facility] [address] [place] [address] Dr. Marlen Vera Anion gap [Moles/Vol] 10.4 mmol/L Normal [facility] Comment on above: Performed By: #### L IPID, URIC, CMP #### [facility] [address] [place] [address] Dr. Marlen Vera AST [Catalytic activity/Vol] 17 U/L Normal 15-37 [facility] Comment on above: Performed By: #### L IPID, URIC, CMP #### [facility] [address] [place] [address] Dr. Marlen Vera Bilirubin [Mass/Vol] 0.6 mg/dL Normal 0.2-1.0 [facility] Comment on above: Performed By: #### L IPID, URIC, CMP #### [facility] [address] [place] [address] Dr. Marlen Vera Calcium [Mass/Vol] 9.3 mg/dL Normal 8.5-10.1 [facility] Comment on above: Performed By: #### L IPID, URIC, CMP #### [facility] [address] [place] [address] Dr. Marlen Vera Chloride [Moles/Vol] 102 mmol/L Normal 98-107 [facility] Comment on above: Performed By: #### L IPID, URIC, CMP #### [facility] [address] [address] [address] Marlen Vera CO2 [Moles/Vol] 28.8 mmol/L Normal 21.0-32.0 [facility] Comment on above: Performed By: #### L IPID, URIC, CMP #### [facility] [address] [address] [address] Marlen Vera Creatinine [Mass/Vol] 0.80 mg/dL Normal 0.70-1.30 [facility] Comment on above: Performed By: #### L IPID, URIC, CMP #### [facility] [address] [address] [address] Marlen Vera EGFR-AF [place] >60 Normal >=60 [facility] Comment on above: Performed By: #### L IPID, URIC, CMP #### [facility] [address] [place] [address] Dr. Marlen Vera EGFR-NON AF [place] >60 Normal >=60 [facility] Comment on above: Performed By: #### L IPID, URIC, CMP #### [facility] [address] [address] [address] Marlen Vera Globulin (S) [Mass/Vol] 3.2 g/dL Normal [facility] Comment on above: Performed By: #### L IPID, URIC, CMP #### [facility] [address] [address] [address] Marlen Vera Glucose [Mass/Vol] 112 mg/dL Critically high 74-106 [facility] Comment on above: Performed By: #### L IPID, URIC, CMP #### [facility] [address] [address] [address] Marlen Vera Potassium [Moles/Vol] 4.2 mmol/L Normal 3.5-5.1 [facility] Comment on above: Performed By: #### L IPID, URIC, CMP #### [facility] [address] [address] [address] Marlen Vera Protein [Mass/Vol] 7.2 g/dL Normal 6.4-8.2 [facility] Comment on above: Performed By: #### L IPID, URIC, CMP #### [facility] [address] [address] [address] Marlen Vera Sodium [Moles/Vol] 137 mmol/L Normal 136-145 [facility] Comment on above: Performed By: #### L IPID, URIC, CMP #### [facility] [address] [place] [address] Dr. Marlen Vera Urea nitrogen [Mass/Vol] 15.0 mg/dL Normal 7.0-18.0 [facility] Comment on above: Performed By: #### L IPID, URIC, CMP #### [facility] [address] [address] [address] Marlen Vera Urea nitrogen/Creatinine [Mass ratio] 18.8 mg/mg Normal [facility] Comment on above: Performed By: #### L IPID, URIC, CMP #### [facility] [address] [place] [address] Dr. Marlen Vera URIC ACID SERUMon 10-13-2022 Urate [Mass/Vol] 5.9 mg/dL Normal 3.5-7.2 [facility] Comment on above: Performed By: #### L IPID, URIC, CMP #### [facility] [address] [place] [address] Dr. Marlen Vera Vital Signs Date Time Vital Sign Value Performing Clinician Faci lity 08-14-2024 11:14-0400 Body height 177.8 cm Breanna Cardozo DO Work Phone: [facility] 08-14-2024 11:14-0400 Body mass index (BMI) [Ratio] 32.28 kg/m2 Breanna Cardozo DO Work Phone: [facility] 08-14-2024 11:14-0400 Body weight 102.06 kg Breanna Cardozo DO Work Phone: [facility] 08-07-2024 15:04-0400 Body height 177.8 cm Breanna Cardozo DO Work Phone: [facility] 08-07-2024 15:04-0400 Body mass index (BMI) [Ratio] 32.28 kg/m2 Breanna Cardozo DO Work Phone: [facility] 08-07-2024 15:04-0400 Body weight 102.06 kg Breanna Cardozo DO Work Phone: [facility] 07-31-2024 13:57-0400 Body height 177.8 cm Breanna Cardozo DO Work Phone: [facility] 07-31-2024 13:57-0400 Body mass index (BMI) [Ratio] 32.28 kg/m2 Breanna Cardozo DO Work Phone: [facility] 07-31-2024 13:57-0400 Body weight 102.06 kg Breanna Cardozo DO Work Phone: [facility] Encounters Encounter Date Encounter Type Care Provider Facility Start: 10-09-2024 End: 10-09-2024 ambulatory [facility] Start: 08-14-2024 End: 08-14-2024 Bamboo flowsheet Breanna Adkins Cardozo DO Work Phone: [facility] Start: 08-14-2024 End: 08-14-2024 Bamboo flowsheet Breanna Robbin Cardozo DO Work Phone: [facility] Start: 08-14-2024 End: 08-14-2024 Patient encounter procedure Breanna Robbin Cardozo DO Work Phone: [facility] Comment on above: Bilateral primary os teoarthritis of knee (Primary Dx) Start: 08-14-2024 End: 08-14-2024 ambulatory BREANNA Adkins CARDOZO Not Available Start: 08-07-2024 End: 08-07-2024 Patient encounter procedure Breanna T Cardozo DO Work Phone: [facility] Comment on above: Bilateral primary os teoarthritis of knee (Primary Dx) Start: 08-07-2024 End: 08-07-2024 ambulatory BREANNA T CARDOZO Not Available Start: 08-07-2024 End: 08-07-2024 Bamboo flowsheet Breanna T Cardozo DO Work Phone: [facility] Start: [...] 07-11-2024 ambulatory BREANNA CARDOZO Not Available Start: 07-08-2024 End: 07-08-2024 Telephone encounter Breanna Cardozo DO Work Phone: [facility] Start: 06-03-2024 End: 06-03-2024 ambulatory BREANNA CARDOZO Not Available Start: 05-20-2024 End: 05-20-2024 ambulatory BREANNA CARDOZO Not Available Start: 04-04-2024 End: 04-04-2024 ambulatory [facility] Start: 10-26-2023 End: 10-26-2023 ambulatory [facility] Start: 03-13-2023 End: 03-14-[address] WILBER LOU . Facility:[facility] Start: 02-07-2023 End: 02-08-[address] WILBER LOU . Facility:[facility] Start: 01-16-2023 End: 01-17-[address] WILBER LOU . Facility:[facility] Start: 10-18-2022 Encounter for genera l adult medical examination without abnormal findings DR WILBER LOU . [facility] Start: 10-13-2022 End: 10-14-[address] WILBER [...] Comment on above: Performed By: #### P [facility] #### [facility] [address] [place] [address] Dr. Marlen Vera Plan of Treatment Date Care Activity Detail Author Start: 08-14-2024 End: 08-14-2024 Patient encounter procedure 08/14/2024 11:00 AM EDT Procedure Visit [facility] [address] [place] [id number] Breanna Cardozo DO [address] [place] [address] Bilateral primary osteoarthritis of knee (Primary Dx) [facility] Comment on above: Bilateral primary os teoarthritis of knee (Primary Dx) Start: 08-07-2024 End: 08-07-2024 Patient encounter procedure [facility] Comment on above: Bilateral primary os teoarthritis of knee (Primary Dx) Start: 06-29-2024 Influenza vaccination Influenza Vacc ine (#1) [facility] Start: 1965 Screening for malign ant neoplasm of colon [facility] L Inj/Asp: bilateral knee L Inj/Asp: bilateral knee Procedures Routine Bilateral primary osteoarthritis of knee Ordered: 07/31/2024 [facility] Work Phone: Comment on above: Ordered: 07/31/2024 Immunizations Immunization Date Immunization Notes Care Provider Fa cility 08-25-2022 influenza virus vacc ine, unspecified formulation Breanna Cardozo DO Work Phone: [facility] Payers Date Payer Category Payer Private Health Insurance [employer] [id number] 2023 Unknown [employer] [id number] 2023-Present [address] [place] [address] [id number] 1965 Unknown [id number]. 593 1965 Unknown [id number]. 593 1965 Unknown [id number]. 593 1965 Unknown [id number]. 593 1965 Unknown [id number] [id number]. 1259 1965 Unknown [id number] [id number]. 1259 1965 Unknown [id number] [id number]. 1259 1965 Unknown [id number] 1965 Unknown [id number] 1965 Unknown [id number] [id number] 1965 Unknown [id number] [id number] 1965 Unknown [id number] [id number] 1959 Unknown [id number] Social History Date Type Detail Facility Start: 05-20-2024 Tobacco smoking stat [facility] Never smoked tobacco [facility] Start: 05-20-2024 Tobacco use and exposure Smoke less tobacco non-user [facility] Start: 06-03-2024 End: 08-07-2024 History of Social function [facility] Start: 06-03-2024 End: 08-07-2024 Tobacco use panel [facility] Start: 1965 Sex assigned at Not on file N [facility] Start: 07-31-2024 End: 08-07-2024 Alcoholic beverage intake Defer [facility] Progress note 10-09-2024 Note Date & Type Note Facility 10-09-2024 Note [facility] SS NOTE HPI: [place] [...] and no significant valvular abnormality was noted Patient here for 6 mo follow up hypertension and hyperlipidemia. He was started on Crestor 10mg at last visit. Says he's tolerating it well so far. Had CMP and lipid panel a few weeks ago. Patient denies chest pain, SOB, and palpitations. He is pleased with how he is doing and denies any cardiac complaints or concerns. PMH: HTN PSH: no pertinent cardiac surgery/procedures FMH: Father and sister with CAD- CABG in 60's, Social: never smoker, red wine- 3 glasses a week, denied illicit drug use. Review of Systems Review of Systems Musculoskeletal: Positive for joint pain. All other systems reviewed and are negative. Visit Vitals Ht 1.803 m (5' 11 ) BMI 31.10 kg/m??? Smoking Status Never BSA [...] 15 mg by mouth in the morning. rosuvastatin (Crestor) 10 mg tablet Take 1 tablet (10 mg) by mouth in the morning. 90 [...] adamantly denies any angina or anginal equivalents -Patient tolerated Crestor 10 mg without any issue. Discussed with him risks/benefits of increasing dose to 20 mg daily. He wishes to increase dose. Will order 20 mg for hyperlipidemia. -Continue Aspirin 81 mg daily. Avoiding beta [...] -Follow-up in cardiology clinic Estelle Jackson MD [facility] History of Present illness Narrative 08-14-2024 Sherine Sainz MA - 08/14/2024 11:00 AM Liliya Cardozo DO - 08/14/2024 11:00 AM EDT [...] pain or concerns. documented in this encounter [facility] Telephone encounter Note 07-08-2024 Telephone Encounter - Megan Avila - 07/08/2024 11:39 AM EDT Note Date & Type Note Facility 07-08-2024 Telephone encount er Note Rt knee OA, GLENN/CORTISONE 06/03/24 [facility] Not much relief with injection. You mention mri as next step in office note. Auth or see first? [facility] Note 07-08-2024 Telephone Encounter - Megan Avila - 07/08/2024 11:39 AM EDT Note Date & Type Note Facility 07-08-2024 Miscellaneous Notes Formattin g of this note might be different from the original. Rt knee OA, GLENN/CORTISONE 06/03/24 [facility] Not much relief with injection. You mention mri as next step in office note. Auth or see first? documented in this encounter [facility] Progress note 04-04-2024 Note Date & Type Note Facility 04-04-2024 Note [facility] NOTE HPI: [place] [...] -Follow-up in cardiology clinic Estelle Jackson MD [facility] Progress note 10-26-2023 Note Date & Type Note Facility 10-26-2023 Note [facility] SS NOTE HPI: [place] [...] -Follow-up in cardiology clinic Estelle Jackson MD [facility] Progress note 10-26-2023 Note Date & Type Note Facility 10-26-2023 Note Patient here for 6 m o follow up hypertension and hyperlipidemia. Atorvastatin was increased at last visit in February 2023 to 80mg daily. He had liver/lipid panel in Jul 2023. He still denies chest pain, SOB, and palpitations. Doing well. [facility] Evaluation note Note Date & Type Note Facility Evaluation note Diagnosis Bilateral primary osteoarthritis of knee- Primary Acute medial meniscus tear of right knee, subsequent encounter documented in this encounter [facility] Evaluation note Note Date & Type Note Facility Evaluation note Diagnosis Bilateral primary osteoarthritis of knee- Primary documented in this encounter [facility] Summary Purpose Family History No Family History Records FoundNo Family History Records FoundNo Family History Records Found Advance Directives No Advanced Directives Records FoundNo Advanced Directives Records FoundNo Advanced Directives Records Found Reason for Referral Specialty Diagnoses / Procedures Referred By Gissel adkins Referred To Contact Orthopaedic Surgery Diagnoses Bilateral primary osteoarthritis of knee Procedures L Inj/Asp: bilateral knee Breanna Cardozo, DO [address] [place] [address] Referral ID Status Reason Start Date Expiration Date Visits Re quested Visits Authorized [id number] Closed 07/31/2024 01/27/2025 1 1 Referral ID Status Reason Start Date Expiration Date V isits Requested Visits Authorized [id number] Authorized 08/07/2024 02/03/2025 1 1 Additional Source Comments (unrecognized sect ion and content) No Status Records FoundNo Status Records FoundNo Status Records Found INFORMATION SOURCE (unrecogn ized section and content) DATE CREATED AUTHOR 03/14/2023 [facility] DATE CREATED AUTHOR AUTHOR'S ORGANIZ ATION 08/16/[address] [facility] EPIC DATE CREATED AUTHOR AUTHOR'S ORGANIZ ATION 10/14/2024 [facility] Care Teams (unrecognized sec tion and content) Roofing Supervisor Relationship Specialty Start Date End Date Wilber Lou MD [address] [place] [facility] [place] [address] PCP - General Family Medicine 07/31/24 Roofing Supervisor Relationship Specialty Start Date End Date Wilber Lou MD [address] [facility] [place] [address] PCP - General Family Medicine 07/31/24 Roofing Supervisor Relationship Specialty Start Date End Date Wilber Lou MD [address] [facility] [place] [address] PCP - General Family Medicine 07/31/24 Roofing Supervisor Relationship Specialty Start Date End Date Wilber Lou MD [address] [facility] [place] [address] PCP - General Family Medicine 07/31/24 Roofing Supervisor Relationship Specialty Start Date End Date Wilber Lou MD [address] [facility] [place] [address] PCP - General Family Medicine 07/31/24 Reason for Visit (unrecogniz ed section and content) Reason Comments Follow-up MRI [facility] 07/11/24 Reason Comments Follow-up Reason Comments Injections B/L Synvisc 12/29 Injections FOR RECORDS PERTAINING TO PATIENTS WHO [...] BE BASED ON THE PRIMARY CLINICAL RECORDS. [facility] [employer] [facility]. provides no warranty or guarantee of the accuracy or completeness of information in this document.
[2025-02-09 06:43] LABS: Basophils Absolute Auto 0.1 10^3/uL (0.0-0.1); Basophils Percent Auto 0.7 % (0.2-2.0); Eosinophils Absolute Auto 0.5 10^3/uL (0.0-0.7); Eosinophils Percent Auto 6.5 % (0.9-7.0); Hematocrit 42.3 % (42.0-54.0); Hemoglobin 14.8 g/dL (14.0-18.0); Immature Granulocytes Abs Auto 0.02 10^3/uL (0.00-0.03); Immature Granulocytes Pct Auto 0.3 % (0.0-0.5); Lymphocytes Absolute Auto 1.9 10^3/uL (1.2-3.8); Lymphocytes Percent Auto 25.7 % (20.5-60.0); Mean Corpuscular Hemoglobin 31.2 pg (25.9-34.0); Mean Corpuscular Volume 89.2 fL (80.0-94.0); Mean Platelet Volume 10.5 fL (9.5-13.5); Monocytes Absolute Auto 0.6 10^3/uL (0.3-0.8); Monocytes Percent Auto 8.9 % (1.7-12.0); Neutrophils Absolute Auto 4.2 10^3/uL (1.4-6.5); Neutrophils Percent Auto 57.9 % (43.0-75.0); Platelet Count 156 10^3/uL (150-450); Red Blood Count 4.74 10^6/uL (4.70-6.10); White Blood Count 7.2 10^3/uL (4.0-11.0)
[2025-02-09 09:29] LABS: Estimated Average Glucose 120 mg/dL; Glycohemoglobin A1C 5.8 % (4.5-6.2)
[2025-02-09 09:51] LABS: Alanine Aminotransferase 33 U/L (16-63); Albumin Globulin Ratio 1.5; Alkaline Phosphatase 71 U/L (46-116); Anion Gap 10.6; Aspartate Amino Transferase 18 U/L (15-37); BUN Creatinine Ratio 11.4; Bilirubin Total 0.7 mg/dL (0.2-1.0); Calcium 9.2 mg/dL (8.5-10.1); Carbon Dioxide 31.4 mmol/L (21.0-32.0); Chloride 104 mmol/L (98-107); Chol HDL Ratio 2.2; Cholesterol 117 mg/dL (<=200); Estimated GFR (African America >60 (>=60 mL/min/1.73m^2); Estimated GFR (Non-African Ame >60 (>=60 mL/min/1.73m^2); Free T3 3.04 pg/mL (2.18-3.98); Globulin 2.6 g/dL; Glucose 108 mg/dL (74-106); HDL Cholesterol 54 mg/dL (40-60); LDL Cholesterol Calculated 44.4 mg/dL; Sodium 142 mmol/L (136-145); Thyroid Stimulating Hormone 3.069 uIU/mL (0.358-3.740); Total Protein 6.6 g/dL (6.4-8.2); Triglycerides 93 mg/dL (<=150); VLDL CHOLESTEROL 18.6 mg/dL
[2025-02-10 04:08] LABS: Insulin 21.2 uIU/mL (2.6-24.9); Testosterone 601 ng/dL (264-916)
== END 2025-02-09 06:22 | disposition home or self-care (01) ==
LOC: LAB 06:22
PROVIDERS: PCP Family Medicine; Visit Provider Family Medicine
DX: Z00.00 Encounter for general adult medical examination without abnormal findings (principal); R73.09 Other abnormal glucose; E03.9 Hypothyroidism, unspecified; E29.1 Testicular hypofunction; Z12.5 Encounter for screening for malignant neoplasm of prostate
CPT/HCPCS: 36415; 80053; 80061; 83036; 83525; 84403; 84436; 84443; 84481; 85025; G0103

== ENCOUNTER 2025-02-13 08:39 | Outpatient (REF) | payer OTHER, SELFPAY ==
--- OUTSIDE RECORDS SUMMARY | 2025-02-13 08:45 | XMS_ITS | CCD ---
Author Organization [facility] Care Team Providers Care Communications Programmer Name Role Phone JAYY ., DR MERINO [...] Unavailable Mansoory Wilber HANCOCK Primary Care Provider [phone] BREANNA CARDOZO Attending Unavailable CARDOZO, BREANNA Adkins [...] sources) atorvastatin; Translations: [ATORVASTATIN] Drug Allergy 04-04-2024 [facility] Medications Current Medications Medication Drug Class(es) [...] Range Facility Office Visiton 10-09-2024 Follow-up visit [id number] Tree Helms 1965 M Date Provider Department Center 10/09/2024 3848-LUISANA JOHNSUNSHINE CARD [facility] Family History Problem Relation Age of Onset Coronary artery disease Father Other Father Coronary artery disease Sister Other Sister Coronary artery disease Paternal Grandfather Family Status - Relation Status Age at Father Sister Paternal Grandfather Level of Service:06776 NE OFFICE/OUTPATIENT ESTABLISHED MOD MDM 30 MIN Normal [facility] L Inj/Asp: bilateral kneeon 08-14-2024 Sherine Sainz MA 08/14/2024 12:04 PM L Inj/Asp: bilateral knee on 08/14/2024 11:17 AM Indications: pain Details: 22 G needle Medications (Right): 2 mL hylan 16 MG/2ML Medications (Left): 2 mL hylan 16 MG/2ML Consent was given by the patient. [facility] L Inj/Asp: bilateral kneeon 08-07-2024 Jessica Maddox MA 08/07/2024 3:30 PM L Inj/Asp: bilateral knee on 08/07/2024 3:06 PM Indications: pain Details: 22 G needle Medications (Right): 16 mg hylan 16 MG/2ML Medications (Left): 16 mg hylan 16 MG/2ML [facility] MR KNEE RIGHT WO IV CONTRAST [...] MRI questions Office Visiton 04-04-2024 Follow-up visit [id number] Tree Helms 1965 M Date Provider Department [facility] Problem Relation Age of Onset Coronary artery disease Father Other Father Coronary artery disease Sister Other Sister Coronary artery disease Paternal Grandfather Family Status - Relation Status Age at Father Sister Paternal Grandfather Level of Service:19090 NE OFFICE/OUTPATIENT ESTABLISHED MOD MDM 30 MIN Normal [facility] Office Visiton 10-26-2023 Follow-up visit [id number] Tree Helms 1965 M Date Provider Department [facility] Family History Problem Relation Age of Onset Coronary artery disease Father Other Father Coronary artery disease Sister Other Sister Coronary artery disease Paternal Grandfather Family Status - Relation Status Age at Father Sister Paternal Grandfather Level of Service:13933 NE OFFICE/OUTPATIENT ESTABLISHED MOD MDM 30 MIN Normal [facility] ECHOCARDIO M/2D COMPLETEon 0 03-13-2023 ECHOCARDIO M/2D COMPLETE Patient: TREE HELMS Exam Date: 03/13/2023 : 1965 Gender:M Ordering : SHRAVAN PALM Admission #: [id number] Family : Order #: [id number] CLICK HERE TO VIEW EXAM ECHOCARDIOGRAM REPORT [...] Wetzel M.D. on 03/13/2023 at 20:10 Normal [facility] NM STRESS/REST MULTIon 02-07 NM STRESS/REST MULTI Patient: ESTRELLITA HELMS Exam Date: 02/07/2023 : 1965 Gender:M Ordering : DR WILBER LOU . Admission #: [id number] Family : Order #: [id number] CLICK HERE TO VIEW EXAM RADIOLOGY REPORT [...] MD on 02/12/2023 at 09:09 Normal [facility] INSULINon 10-14-2022 Insulin 14.4 uIU/mL Normal 2.6-24.9 [facility] Comment on above: Performed By: #### I NSULIN #### [facility] [address] [place] [address] Dr. Marlen Vera CBC AUTO DIFFon 10-13-2022 BASO # 0.1 103/ul Normal 0.0-0.1 [facility] Comment on above: Performed By: #### C BC #### [facility] [address] [place] [address] Dr. Marlen Vera Basophils/100 WBC (Bld) 0.7 % Normal 0.2-2.0 [facility] Comment on above: Performed By: #### C BC #### [facility] [address] [place] [address] Dr. Marlen Vera EO # 0.6 103/ul Normal 0.0-0.7 [facility] Comment on above: Performed By: #### C BC #### [facility] [address] [place] [address] Dr. Marlen Vera Eosinophils/100 WBC (Bld) 7.9 % Critically high 0.9-7.0 [facility] Comment on above: Performed By: #### C BC #### [facility] [address] [place] [address] Dr. Marlen Vera Erythrocyte distribution width (RBC) [Ratio] 12.1 % Normal 11.0-15.0 [facility] Comment on above: Performed By: #### C BC #### [facility] [address] [place] [address] Dr. Marlen Vera Hematocrit (Bld) [Volume fraction] 43.3 % Normal 42.0-54.0 [facility] Comment on above: Performed By: #### C BC #### [facility] [address] [address] [address] Marlen Vera Hemoglobin (Bld) [Mass/Vol] 15.2 g/dL Normal 14.0-18.0 [facility] Comment on above: Performed By: #### C BC #### [facility] [address] [address] [address] Marlen Vera IG # 0.03 10e3/ul Normal 0.00-0.03 [facility] Comment on above: Performed By: #### C BC #### [facility] [address] [place] [address] Dr. Marlen Vera IG % 0.4 % Normal 0.0-0.5 [facility] Comment on above: Performed By: #### C BC #### [facility] [address] [place] [address] Dr. Marlen Vera LYMPH # 2.2 103/ul Normal 1.2-3.8 [facility] Comment on above: Performed By: #### C BC #### [facility] [address] [place] [address] Dr. Marlen Vera Lymphocytes/100 WBC (Bld) 29.5 % Normal 20.5-60.0 [facility] Comment on above: Performed By: #### C BC #### [facility] [address] [place] [address] Dr. Marlen Vera MANUAL DIFF REQ NO Normal [facility] Comment on above: Performed By: #### C BC #### [facility] [address] [place] [address] Dr. Marlen Vera MCH (RBC) [Entitic mass] 31.1 pg Normal 25.9-34.0 [facility] Comment on above: Performed By: #### C BC #### [facility] [address] [place] [address] Dr. Marlen Vera MCHC (RBC) [Mass/Vol] 35.1 g/dL Normal 29.9-35.2 [facility] Comment on above: Performed By: #### C BC #### [facility] [address] [address] [address] Marlen Vera MCV (RBC) [Entitic vol] 88.5 fL Normal 80.0-94.0 [facility] Comment on above: Performed By: #### C BC #### [facility] [address] [address] [address] Marlen Vera MONO # 0.7 103/ul Normal 0.3-0.8 [facility] Comment on above: Performed By: #### C BC #### [facility] [address] [place] [address] Dr. Marlen Vera Monocytes/100 WBC (Bld) 8.9 % Normal 1.7-12.0 [facility] Comment on above: Performed By: #### C BC #### [facility] [address] [place] [address] Dr. Marlen Vera NEUT # 3.9 103/ul Normal 1.4-6.5 [facility] Comment on above: Performed By: #### C BC #### [facility] [address] [place] [address] Dr. Marlen Vera Neutrophils/100 WBC (Bld) 52.6 % Normal 43.0-75.0 [facility] Comment on above: Performed By: #### C BC #### [facility] [address] [place] [address] Dr. Marlen Vera Platelet mean volume (Bld) [Entitic vol] 10.0 fL Normal 9.5-13.5 [facility] Comment on above: Performed By: #### C BC #### [facility] [address] [place] [address] Dr. Marlen Vera PLT 168 103/ul Normal 150-450 [facility] Comment on above: Performed By: #### C BC #### [facility] [address] [place] [address] Dr. Marlen Vera RBC 4.89 106/ul Normal 4.70-6.10 [facility] Comment on above: Performed By: #### C BC #### [facility] [address] [address] [address] Marlen Vera WBC 7.3 103/ul Normal 4.0-11.0 [facility] Comment on above: Performed By: #### C BC #### [facility] [address] [place] [address] Dr. Marlen Vera GLYCOHEMOGLOBIN A1Con 2021 ADA RECOMMENDATION SEE BELOW Normal [facility] Comment on above: Result Comment: ADA RECOMMENDED LIMIT 4.0 - 6.0 ADA THERAPEUTIC TARGET < 7.0 ACTION SUGGESTED > 7.0 Performed By: #### A 1C #### [facility] [address] [place] [address] Dr. Marlen Vera Glucose [Mass/Vol] 114 mg/dL Normal [facility] Comment on above: Performed By: #### A 1C #### [facility] [address] [place] [address] Dr. Marlen Vera HbA1c (Bld) [Mass fraction] 5.6 % Normal 4.5-6.2 [facility] Comment on above: Performed By: #### A 1C #### [facility] [address] [place] [address] Dr. Marlen Vera LIPID PROFILEon 10-13-2022 CHOL-HDL RATIO NORM SEE BELOW Normal [facility] Comment on above: Result Comment: 3.3 - 4.4 LOW RISK 4.4 - 7.1 AVERAGE RISK 7.1 - 11.0 MODERATE RISK >11.0 HIGH RISK Performed By: #### L IPID, URIC, CMP #### [facility] [address] [place] [address] Dr. Marlen Vera Cholesterol [Mass/Vol] 194 mg/dL Normal <=200 [facility] Comment on above: Performed By: #### L IPID, URIC, CMP #### [facility] [address] [place] [address] Dr. Marlen Vera Cholesterol in HDL [Mass/Vol] 50 mg/dL Normal 40-60 [facility] Comment on above: Performed By: #### L IPID, URIC, CMP #### [facility] [address] [place] [address] Dr. Marlen Vera Cholesterol in LDL [Mass/Vol] 122.4 mg/dL Normal [facility] Comment on above: Performed By: #### L IPID, URIC, CMP #### [facility] [address] [address] [address] Marlen Vera Cholesterol.total/Ch olesterol in HDL [Mass ratio] 3.9 {ratio} Normal [facility] Comment on above: Performed By: #### L IPID, URIC, CMP #### [facility] [address] [address] [address] Marlen Vera HDL NORMAL > or = 60 mg/dl - LO W CARDIOVASCULAR RISK <40 mg/dl - HIGH CARDIOVASCULAR RISK Normal [facility] Comment on above: Performed By: #### L IPID, URIC, CMP #### [facility] [address] [address] [address] Marlen Vera LDL CALC NORMAL SEE BELOW Normal [facility] Comment on above: Result Comment: <100 mg/dl OPTIMAL 100 - 129 mg/dl NEAR OR ABOVE OPTIMAL 130 - 159 mg/dl BORDERLINE HIGH 160 - 189 mg/dl HIGH >190 mg/dl VERY HIGH Performed By: #### L IPID, URIC, CMP #### [facility] [address] [address] [address] Marlen Vera Triglyceride [Mass/Vol] 108 mg/dL Normal <=150 [facility] Comment on above: Performed By: #### L IPID, URIC, CMP #### [facility] [address] [address] [address] Marlen Vera VLDL CALC 21.6 mg/dL Normal [facility] Comment on above: Performed By: #### L IPID, URIC, CMP #### [facility] [address] [address] [address] Marlen Vera PROF 14(COMP METB)on 022 Albumin [Mass/Vol] 4.0 g/dL Normal 3.4-5.0 [facility] Comment on above: Performed By: #### L IPID, URIC, CMP #### [facility] [address] [address] [address] Marlen Vera Albumin/Globulin [Mass ratio] 1.3 {ratio} Normal [facility] Comment on above: Performed By: #### L IPID, URIC, CMP #### [facility] [address] [address] [address] Marlen Vera ALP [Catalytic activity/Vol] 71 U/L Normal 46-116 [facility] Comment on above: Performed By: #### L IPID, URIC, CMP #### [facility] [address] [place] [address] Dr. Marlen Vera ALT [Catalytic activity/Vol] 29 U/L Normal 16-63 [facility] Comment on above: Performed By: #### L IPID, URIC, CMP #### [facility] [address] [place] [address] Dr. Marlen Vera Anion gap [Moles/Vol] 10.4 mmol/L Normal [facility] Comment on above: Performed By: #### L IPID, URIC, CMP #### [facility] [address] [place] [address] Dr. Marlen Vera AST [Catalytic activity/Vol] 17 U/L Normal 15-37 [facility] Comment on above: Performed By: #### L IPID, URIC, CMP #### [facility] [address] [place] [address] Dr. Marlen Vera Bilirubin [Mass/Vol] 0.6 mg/dL Normal 0.2-1.0 [facility] Comment on above: Performed By: #### L IPID, URIC, CMP #### [facility] [address] [place] [address] Dr. Marlen Vera Calcium [Mass/Vol] 9.3 mg/dL Normal 8.5-10.1 [facility] Comment on above: Performed By: #### L IPID, URIC, CMP #### [facility] [address] [place] [address] Dr. Marlen Vera Chloride [Moles/Vol] 102 mmol/L Normal 98-107 [facility] Comment on above: Performed By: #### L IPID, URIC, CMP #### [facility] [address] [address] [address] Marlen Vera CO2 [Moles/Vol] 28.8 mmol/L Normal 21.0-32.0 [facility] Comment on above: Performed By: #### L IPID, URIC, CMP #### [facility] [address] [address] [address] Marlen Vera Creatinine [Mass/Vol] 0.80 mg/dL Normal 0.70-1.30 [facility] Comment on above: Performed By: #### L IPID, URIC, CMP #### [facility] [address] [address] [address] Marlen Vera EGFR-AF [place] >60 Normal >=60 [facility] Comment on above: Performed By: #### L IPID, URIC, CMP #### [facility] [address] [place] [address] Dr. Marlen Vera EGFR-NON AF [place] >60 Normal >=60 [facility] Comment on above: Performed By: #### L IPID, URIC, CMP #### [facility] [address] [address] [address] Marlen Vera Globulin (S) [Mass/Vol] 3.2 g/dL Normal [facility] Comment on above: Performed By: #### L IPID, URIC, CMP #### [facility] [address] [address] [address] Marlen Vera Glucose [Mass/Vol] 112 mg/dL Critically high 74-106 [facility] Comment on above: Performed By: #### L IPID, URIC, CMP #### [facility] [address] [address] [address] Marlen Vera Potassium [Moles/Vol] 4.2 mmol/L Normal 3.5-5.1 [facility] Comment on above: Performed By: #### L IPID, URIC, CMP #### [facility] [address] [address] [address] Marlen Vera Protein [Mass/Vol] 7.2 g/dL Normal 6.4-8.2 [facility] Comment on above: Performed By: #### L IPID, URIC, CMP #### [facility] [address] [address] [address] Marlen Vera Sodium [Moles/Vol] 137 mmol/L Normal 136-145 [facility] Comment on above: Performed By: #### L IPID, URIC, CMP #### [facility] [address] [place] [address] Dr. Marlen Vera Urea nitrogen [Mass/Vol] 15.0 mg/dL Normal 7.0-18.0 [facility] Comment on above: Performed By: #### L IPID, URIC, CMP #### [facility] [address] [address] [address] Marlen eVra Urea nitrogen/Creatinine [Mass ratio] 18.8 mg/mg Normal [facility] Comment on above: Performed By: #### L IPID, URIC, CMP #### [facility] [address] [place] [address] Dr. Marlen Vera URIC ACID SERUMon 10-13-2022 Urate [Mass/Vol] 5.9 mg/dL Normal 3.5-7.2 [facility] Comment on above: Performed By: #### L IPID, URIC, CMP #### [facility] [address] [place] [address] Dr. Marlen Vera Vital Signs Date Time Vital Sign Value Performing Clinician Faci lity 08-14-2024 11:14-0400 Body height 177.8 cm Breanna Cardozo DO Work Phone: [facility] 08-14-2024 11:14-0400 Body mass index (BMI) [Ratio] 32.28 kg/m2 Breanna Cardozo DO Work Phone: [facility] 08-14-2024 11:14-0400 Body weight 102.06 kg Breanna Cardozo DO Work Phone: [facility] 08-07-2024 15:04-0400 Body height 177.8 cm Breanna Cardozo DO Work Phone: [facility] 08-07-2024 15:04-0400 Body mass index (BMI) [Ratio] 32.28 kg/m2 Breanna Cardozo DO Work Phone: [facility] 08-07-2024 15:04-0400 Body weight 102.06 kg Breanna Cardozo DO Work Phone: [facility] 07-31-2024 13:57-0400 Body height 177.8 cm Breanna Cardozo DO Work Phone: [facility] 07-31-2024 13:57-0400 Body mass index (BMI) [Ratio] 32.28 kg/m2 Breanna Cardozo DO Work Phone: [facility] 07-31-2024 13:57-0400 Body weight 102.06 kg Breanna Cardozo DO Work Phone: [facility] Encounters Encounter Date Encounter Type Care Provider Facility Start: 10-09-2024 End: 10-09-2024 ambulatory [facility] Start: 08-14-2024 End: 08-14-2024 Bamboo flowsheet Breanna [...] Not Available Start: 04-04-2024 End: 04-04-2024 ambulatory [facility] Start: 10-26-2023 End: 10-26-2023 ambulatory [facility] Start: 03-13-2023 End: 03-14-[address] WILBER LOU . Facility:[facility] Start: 02-07-2023 End: 02-08-[address] WILBER LOU . Facility:[facility] Start: 01-16-2023 End: 01-17-[address] WILBER LOU . Facility:[facility] Start: 10-18-2022 Encounter for genera l adult medical examination without abnormal findings DR WILBER LOU . [facility] Start: 10-13-2022 End: 10-14-[address] WILBER [...] Comment on above: Performed By: #### P [facility] #### [facility] [address] [place] [address] Dr. Marlen Vera Plan of Treatment Date Care Activity Detail Author Start: 08-14-2024 End: 08-14-2024 Patient encounter procedure 08/14/2024 11:00 AM EDT Procedure Visit [facility] [address] [place] [id number] Breanna Cardozo DO [address] [place] [address] Bilateral primary osteoarthritis of knee (Primary Dx) [facility] Comment on above: Bilateral primary os teoarthritis of knee (Primary Dx) Start: 08-07-2024 End: 08-07-2024 Patient encounter procedure [facility] Comment on above: Bilateral primary os teoarthritis of knee (Primary Dx) Start: 06-29-2024 Influenza vaccination Influenza Vacc ine (#1) [facility] Start: 1965 Screening for malign ant neoplasm of colon [facility] L Inj/Asp: bilateral knee L Inj/Asp: bilateral knee Procedures Routine Bilateral primary osteoarthritis of knee Ordered: 07/31/2024 [facility] Work Phone: Comment on above: Ordered: 07/31/2024 Immunizations Immunization Date Immunization Notes Care Provider Fa cility 08-25-2022 influenza virus vacc ine, unspecified formulation Breanna Cradozo DO Work Phone: [facility] Payers Date Payer Category Payer Private Health Insurance [employer] [id number] 2023 Unknown [employer] [id number] 2023-Present [address] [place] [address] [id number] 1965 Unknown [id number] [id number]. 593 1965 Unknown [id number] 2.16.840.1.751683.3.579.2. 593 1965 Unknown [id number] 2.16.840.1.290741.3.579.2. 593 1965 Unknown [id number] 2.16.840.1.473721.3.579.2. 593 1965 Unknown [id number] 2.16.840.1.874046.3.579.2. 1259 1965 Unknown [id number] 2.16.840.1.697486.3.579.2. 1259 1965 Unknown [id number] 2.16.840.1.838064.3.579.2. 1259 1965 Unknown [id number] 2.16.840.1.578311.3.579.2. 1259 1965 Unknown [id number] 2.16.840.1.608584.3.579.2. 1259 1965 Unknown [id number] 2.16.840.1.132617.3.579.2. 1259 1965 Unknown [id number] 2.16.840.1.120677.3.579.2. 1259 1965 Unknown [id number] 2.16.840.1.694017.3.579.2. 1259 1959 Unknown [id number] Social History Date Type Detail Facility Start: 05-20-2024 Tobacco smoking stat [facility] Never smoked tobacco [facility] Start: 05-20-2024 Tobacco use and exposure Smoke less tobacco non-user [facility] Start: 06-03-2024 End: 08-07-2024 History of Social function [facility] Start: 06-03-2024 End: 08-07-2024 Tobacco use panel [facility] Start: 1965 Sex assigned at Not on file [facility] Start: 07-31-2024 End: 08-07-2024 Alcoholic beverage intake Defer [facility] Progress note 10-09-2024 Note Date [...] -Follow-up in cardiology clinic Estelle [place] MD [facility] History of Present illness Narrative 08-14-2024 Sherine [...] pain or concerns. documented in this encounter [facility] Telephone encounter Note 07-08-2024 Telephone Encounter - Megan Avila - 07/08/2024 11:39 AM EDT Note Date & Type Note Facility 07-08-2024 Telephone encount er Note Rt knee OA, GLENN/CORTISONE 06/03/24 MTP Not much relief with injection. You mention mri as next step in office note. Auth or see first? [facility] Note 07-08-2024 Telephone Encounter - Megan Avila - 07/08/2024 11:39 AM EDT Note Date & Type Note Facility 07-08-2024 Miscellaneous Notes Formattin g of this note might be different from the original. Rt knee OA, GLENN/CORTISONE 06/03/24 MTP Not much relief with injection. You mention mri as next step in office note. Auth or see first? documented in this encounter [facility] Progress note 04-04-2024 Note Date & Type Note Facility 04-04-2024 Note [facility] NOTE HPI: Tree Helms [...] -Follow-up in cardiology clinic Estelle [place] MD [facility] Progress note 10-26-2023 Note Date & Type Note Facility 10-26-2023 Note [facility] NOTE HPI: Tree Helms [...] -Follow-up in cardiology clinic Estelle [place] MD [facility] Progress note 10-26-2023 Note Date & Type Note Facility 10-26-2023 Note Patient here for 6 m o follow up hypertension and hyperlipidemia. Atorvastatin was increased at last visit in February 2023 to 80mg daily. He had liver/lipid panel in Jul 2023. He still denies chest pain, SOB, and palpitations. Doing well. [facility] Evaluation note Note Date & Type Note Facility Evaluation note Diagnosis Bilateral primary osteoarthritis of knee- Primary Acute medial meniscus tear of right knee, subsequent encounter documented in this encounter [facility] Evaluation note Note Date & Type [...] Inj/Asp: bilateral knee Breanna Cardozo, DO [address] [place] [address] Referral ID Status Reason Start Date Expiration Date Visits Re quested Visits Authorized [id number] Closed 07/31/2024 01/27/2025 1 1 Referral ID Status Reason Start Date Expiration Date V isits Requested Visits Authorized [id number] Authorized 08/07/2024 02/03/2025 1 1 Additional Source Comments (unrecognized sect ion and content) No Status Records FoundNo Status Records FoundNo Status Records Found INFORMATION SOURCE (unrecogn ized section and content) DATE CREATED AUTHOR 03/14/2023 [facility] DATE CREATED AUTHOR AUTHOR'S ORGANIZ ATION 08/16/2024 [facility] EPIC DATE CREATED AUTHOR AUTHOR'S ORGANIZ ATION 10/14/2024 [facility] Care Teams (unrecognized sec tion and content) Communications Programmer Relationship Specialty Start Date End Date Wilber Lou MD [address] [facility] [place] [address] PCP - General Family Medicine 07/31/24 Communications Programmer Relationship Specialty Start Date End Date Wilber Lou MD [address] [facility] [place] [address] PCP - General Family Medicine 07/31/24 Communications Programmer Relationship Specialty Start Date End Date Wilber Lou MD [address] [facility] [place] [address] PCP - General Family Medicine 07/31/24 Communications Programmer Relationship Specialty Start Date End Date Wilber Lou MD [address] [facility] [place] [address] PCP - General Family Medicine 07/31/24 Communications Programmer Relationship Specialty Start Date End Date Wilber Lou MD [address] [facility] [place] [address] PCP - General Family Medicine 07/31/24 Reason [...] BE BASED ON THE PRIMARY CLINICAL RECORDS. [facility]. provides no warranty or guarantee of the accuracy or completeness of information in this document.
[2025-02-13 08:59] LABS: Internal Control Within Normal Limits; Occult Blood Positive
== END 2025-02-13 08:40 | disposition home or self-care (01) ==
LOC: LAB 08:39
PROVIDERS: PCP Family Medicine; Visit Provider Family Medicine
DX: Z00.00 Encounter for general adult medical examination without abnormal findings (principal)
CPT/HCPCS: G0328

== ENCOUNTER 2025-10-23 08:46 | Outpatient (OUT) | payer OTHER, SELFPAY ==
--- OUTSIDE RECORDS SUMMARY | 2025-10-19 05:58 | XMS_ITS ---
Author Organization [facility] in [place] Address [address] [place] [address] Care Team Providers Care Freight Brakeman Name Role Phone LUIS LOU MD Primary Care Provider Luis Lou Unavailable [phone] REASON FOR VISIT Yearly Labs- LMTCB Encounters Encounter Location Date Provider Diagnosis [facility] [address] [place] [address] 10/19/2025 Luis Lou Wellness examination Z00.00 ; Essential (primary) hypertension I10 ; Screening for colon cancer Z12.11 and Screening for prostate cancer Z12.5 Assessments Encounter Date Diagnosis (ICD Code) Assessment Notes Treatment Notes Treatment Clinical Notes Section Notes 10/19/2025 Wellness examination (ICD-10 - Z 00.00) 10/19/2025Essential (primary) hypertension (ICD-10 - I10)10/19/2025Screening for colon cancer (ICD-10 - Z12.11)10/19/2025Screening for prostate cancer (ICD-10 - Z12.5) Plan Of Treatment Pending Test Test Name Order Date CBC 10/19/2025 CMP - Comprehensive Metabolic Panel 09/29 GLYCOHEMOGLOBIN A1C 10/19/2025 LIPID PROFILE 10/19/2025 THYROID PANEL (T4/TSH/FREE T3) PSA, SCREENING 10/19/2025 Progress Notes * Tree HELMS HDOB:1965 (59 yo M)Acc No.[id number]:10/19/2025 Patient:?Tree HELMS :1965???Age:59 Y???Sex:MalePhone:[phone] Address:[address] [place] [address] [place] [address] Subjective: * Chief Complaints: * Y early Labs- LMTCB * Medical History: * Surgical History: * Hospitalization/Major Diagno stic Procedure: * Medications: Objective: * Vitals: * Physical Examination: ??? Assessment: * Assessment: 1.?Wellness examination - Z00.00 (Primary)???2.?Essential (primary) hypertension - I10???3.?Screening for colon cancer - Z12.11???4.?Screening for prostate cancer - Z12.5??? Plan: * Treatment: ?LAB: CBC ?LAB: CMP - Comprehensive Metabolic Panel ?LAB: GLYCOHEMOGLOBIN A1C ?LAB: LIPID PROFILE ?LAB: THYROID PANEL (T4/TSH/FREE T3)2.?Essential (primary) hypertension?LAB: CMP - Comprehensive Metabolic Panel3.?Screening for prostate cancer?LAB: PSA, SCREENING * Procedure Codes: * true * Date:?Generated for Printing/Faxing/eTransmitting on:?10/23/2025 08:50 AM EST
--- OUTSIDE RECORDS SUMMARY | 2025-10-23 08:50 | XMS_ITS | Clinical Summary ---
Author Organization [facility] Address [address] [place] [address] Care Team Providers Care Forest Manager Name Role Phone Brijesh Hudson Primary Care Provider Shona vailable Medications MedicationSigDispense QuantityRefillsLast FilledStart DateEnd DateStatus MULTIVITAMIN TABLET Take one(1) tablet daily.Active HYZAAR 50-12.5 TABLET Take one(1) tablet daily.Active ALEVE 220MG CAPLET as jjjtcnga295/22/2004Active Active Problems ProblemNoted DateDiagnosed TqwdNhpazrfiobr95/03/9770Ncdqtpzia31/03/2004 Social History Tobacco UseTypesPacks/DayYears UsedDateSmoking Tobacco: Never AssessedSex and Gender InformationValueDate RecordedSex Assigned at BirthNot on fileLegal Sex Male09/29/2012 10:02 AM ESTGender IdentityNot on fileSexual OrientationNot on file Last Filed Vital Signs Vital SignReadingTime TakenCommentsBlood Cyovfujo583/8405/19/2004 10:45 AM EDT Zhqro758005/19/2004 10:45 AM BTRSpcloeslhmy78 ??C (98.6 ??F)01/29/2004 11:30 AM ESTRespiratory Sylu123001/29/2004 1:30 PM ESTOxygen Saturation--Inhaled Oxygen Concentration--Brlsty66.2 kg (196 lb 9.6 oz)05/19/2004 10:45 AM IGKIbqjnb501.8 cm (5' 10 )01/29/2004 11:30 AM ESTBody Mass Index28.21001/29/2004 11:30 AM EST Plan of Treatment Health MaintenanceDue DateLast DoneCommentsAnxiety Bwxjilydw92/30/1983Depression Bdprynist82/30/1983HIV Lqzqvigbz29/30/1983Hepatitis C Cpoahlmbq43/30/1983 DTaP,Tdap,Td Vaccine (1 - Tdap)1984Lipid Mqvpsuler59/30/2000CT Xgnspnzdtrzg01/30/2010Cologuard (FIT-DNA)10/27/20108588Tbsckkwmlrz45/30/2010 Colorectal Cancer Odiubdljt65/30/2010Diabetes Forarvcod68Fecal Occult Blood2010Prostate Cancer Screening Rppolcmiyv32/30/2010 Jbnlgjngvllzj51/30/2010Pneumococcal Vaccine: 50+ (1 of 1 - PCV)2015 Shingrix Vaccine (1 of 2)2015Covid-19 Vaccine (1 - 2024- season) 2025Influenza Vaccine (#1)2025RSV Vaccine (1 - 1-dose 75+ series) 2040 Procedures Procedure NamePriorityDate/TimeAssociated DiagnosisCommentsCOMPREHENSIVE METABOLIC POZXKLqicxyl33/03/2004 6:05 PM EDT Proteinuria Hematuria from Last 3 Months or Most Recently Relevant to Health Maintenance Results * COMP METABOLIC PANEL (02/29/2004 6:05 PM EDT)ComponentValueRef RangeTest MethodAnalysis TimePerformed AtPathologist SignatureProtein, Total7.66.0 - 8.4 g/dLOHIO[facility] LABAlbumin4.93.5 - 5.0 g/dLOHIOHE[facility] LABCalcium 10.38.5 - 10.5 mg/dLOHIOHEALTH GROVE [facility] LABBilirubin, Total0.70.0 - 1.5 mg/dL [facility] LABAlkaline Xwufhcwocvc5207 - 150 U/[facility] LABAST 217 - 40 U/LC[facility] JVXXpdevee5779 - 110 mg/dLOHIOHEALTH [facility] LABBUN 1410 - 25 mg/dLOHIOHE[facility] LABCreatinine1.00.7 - 1.4 mg/dLOHIOHE[facility] FVSTztztm016950 - 146 mmol/LCPROM[facility] LABPotassium4.43.5 - 5.0 mmol/LCPROM[facility] KQBDixrtsrc64488 - 110 mmol/LCLEVEL[facility]INIC DUQVZ290 24 - 32 mmol/LC[facility] LABAnion Gap90 - 15 mmol/LC[facility] LAB KEC726 - 50 U/LC[facility] LABSpecimen (Source)Anatomical Location / LateralityCollection Method / VolumeCollection TimeReceived TimeBlood specimen (specimen)BLOOD SPECIMEN / Mmkexzg0902/29/2004 6:05 PM EDT Narrative Authorizing ProviderResult TypeResult StatusMarc Sandoval Cornejo MDLABORATORYFinal Result Performing OrganizationAddressCity/State/ZIP CodePhone Number [facility] [address] [place] [address] from Last 3 Months or Most Recently Relevant to Health Maintenance Insurance Care Teams Team MemberRelationshipSpecialtyStart [place] [address] PCP - General01/22/04
--- OUTSIDE RECORDS SUMMARY | 2025-10-23 08:50 | XMS_ITS | Clinical Summary ---
Author Organization [facility] Address [address] [place] [address] Care Team Providers Care Wheel Assembler Name Role Phone Danial Lou MD Primary Care Provider [phone] Allergies Active AllergyReactionsCriticalityNoted HtyuIhlkwrzkIwyavzvjmslu89/07/2024 Other Reaction(s): Other myalgias Medications MedicationSigDispense QuantityRefillsLast FilledStart DateEnd DateStatus aspirin 81 MG EC tablet 1 (one) time each day at the same time04/09/2024ctive losartan-hydroCHLOROthiazide (Hyzaar) 100-25 MG tablet 02/18/2024ctive mirtazapine (Remeron) 30 MG tablet 07/22/2024ctive rosuvastatin (Crestor) 10 MG tablet 06/11/2024ctive Active Problems No known active problems Social History Tobacco UseTypesPacks/DayYears UsedDateSmoking Tobacco: NeverSmokeless Tobacco: Never Tobacco Cessation:Counseling Given: Not Answered Alcohol UseStandard Drinks/WeekCommentsDefer0 (1 standard drink = 0.6 oz pure alcohol)Sex and Gender InformationValueDate RecordedSex Assigned at BirthNot on fileLegal EvcUdzs2701/10/2023 6:54 PM EDTGender IdentityNot on fileSexual OrientationNot on file Last Filed Vital Signs Vital SignReadingTime TakenCommentsBlood Abmirmhy624/9612 12:00 PM EST Pulse--Gdactyidglq05.2 ??C (97.1 ??F)06/03/2024 2:15 PM EDTRespiratory Rate-- Oxygen Saturation--Inhaled Oxygen Concentration--Jmnonw313 kg (225 lb)08/14/2024 11:14 AM AQZVxwqry737.8 cm (5' 10 )08/14/2024 11:14 AM EDTBody Mass Index32.28 08/14/2024 11:14 AM EDT Plan of Treatment Not on file Insurance Care Teams Team MemberRelationshipSpecialtyStart DateEnd Danial Lou MD PCP - GeneralFamily Ojpuqxvf16/3/24
--- OUTSIDE RECORDS SUMMARY | 2025-10-23 08:50 | XMS_ITS | Patient Health Record ---
Author Organization [facility] in [place] Address [address] [place] [address] Care Team Providers Care School Librarian Name Role Phone LUIS LOU MD Primary Care Provider Luis Lou Unavailable [phone] Allergies Allergen (clinical drug ingredient) Drug/Non Drug Allergy documented on EMR Reaction Allergy Type Onset Date Status ritonavir Paxlovid insomnia Drug Allergy ActivenirmatrelvirPaxlovidinsomniaDrug AllergyActive Results Component Value Reference Range Notes CBC AUTO DIFF Reviewed date:02/09/2025 08:23:51 PM Interpretation: Performing Lab: Notes/Report: [facility] , White Blood Count 7.2 4.0-11.0 10 3/uL Red Blood Count4.744.70-6.10 10 6/vEEmnbldiqyw72.814.0-18.0 g/lGVjcuxjgvmp52.3 42.0-54.0 %Mean Corpuscular Bogsac03.280.0-94.0 fLMean Corpuscular Hemoglobin 31.225.9-34.0 pgMean Corpuscular HGB Conc35.029.9-35.2 g/dLRed Cell Distribution Width13.011.0-15.0 %Platelet Xjing555146-379 10 3/uLMean Platelet Lsgjva55.59.5- 13.5 fLNeutrophils Percent Auto57.943.0-75.0 %Lymphocytes Percent Auto25.720.5- 60.0 %Monocytes Percent Auto8.91.7-12.0 %Eosinophils Percent Auto6.50.9-7.0 % Basophils Percent Auto0.70.2-2.0 %Immature Granulocytes Pct Auto0.30.0-0.5 % Neutrophils Absolute Auto4.21.4-6.5 10 3/uLLymphocytes Absolute Auto1.91.2-3.8 10 3/uLMonocytes Absolute Auto0.60.3-0.8 10 3/uLEosinophils Absolute Auto0.50.0- 0.7 10 3/uLBasophils Absolute Auto0.10.0-0.1 10 3/uLImmature Granulocytes Abs Auto0.020.00-0.03 10 3/uLPerforming Lab:see noteML - [facility] LB Testosterone Reviewed date:02/10/2025 01:09:13 PM Interpretation: Performing Lab: Notes/Report: [facility] ,Lrgdbxuqrpmo624437-931 ng/dL Adult male reference interval is based on a population of healthy nonobese males (BMI <30) between 19 and 39 years old. Daisy et.al. JCEM 2017,102;9944-0829. PMID: [id number]. Performed at: [address] [id number] Commercial Loan Officer: Mio Calderon PhD, Phone: [phone] Performing Lab:[facility] LBTSH Reviewed date:02/09/2025 08:23:51 PM Interpretation: Performing Lab: Notes/Report: [facility] ,Thyroid Stimulating Hormone3.0690.358-3.740 uIU/mLPerforming Lab:see note - [facility] LBT4 Reviewed date:02/09/2025 08:23:51 PM Interpretation: Performing Lab: Notes/Report: [facility] ,T4 Thyroxine4.104.50-12.10 ug/dLPerforming Lab:see note - [facility] LBPSA SCREENING Reviewed date:02/09/2025 08:23:51 PM Interpretation: Performing Lab: Notes/Report: [facility] ,Prostate Specific Antigen Scrn0.60<=4.00 ng/mLPerforming Lab:see note - [facility] LBPROF 14(COMP METB) Reviewed date:02/09/2025 08:23:51 PM Interpretation: Performing Lab: Notes/Report: [facility] ,Fdtqmj729305-587 mmol/LPotassium4.03.5-5.1 mmol/NYewdgwhf16395-901 mmol/LCarbon Uvoyeir70.421.0-32.0 mmol/LAnion Gap10.5Cxivoxm98136-994 mg/dLBlood Urea Kkaxhigm49.07.0-18.0 mg/dLCreatinine1.140.70-1.30 mg/dLEstimated GFR ( Lise>60>=60 mL/min/1.73m 2Estimated GFR (Non- Katrina>60>=60 mL/min/1.73m 2BUN Creatinine Ratio11.1Cdfaelj7.28.5-10.1 mg/dLBilirubin Total0.70.2-1.0 mg/dL Aspartate Amino Nguptsckuan4585-16 U/LAlanine Sjcnfvcpyeyfmlpz8044-88 U/L Alkaline Jnkpidixkak1848-838 U/LTotal Protein6.66.4-8.2 g/dLAlbumin Level4.03.4- 5.0 g/dLGlobulin2.6Albumin Globulin Ratio1.5Performing Lab:see note - [facility] LBLIPID PROFILE Reviewed date:02/09/2025 08:23:51 PM Interpretation: Performing Lab: Notes/Report: [facility] ,Ptltzjjdgnqkc16<=150 mg/yNDnmjhdkovmo145<=200 mg/dLHDL Gqcmuuossvz8380-71 mg/dL > or =60 mg/dl - LOW CARDIOVASCULAR RISK <40 mg/dl - HIGH CARDIOVASCULAR RISK LDL Cholesterol Omyegyaucg11.4 <100 mg/dl OPTIMAL 100-129 mg/dl NEAR OR ABOVE OPTIMAL 130-159 mg/dl BORDERLINE HIGH 160-189 mg/dl HIGH >190 mg/dl VERY HIGH VLDL VDIYNKREKRD60.6Chol HDL Ratio2.2 3.3 - 4.4 LOW RISK 4.4 - 7.1 AVERAGE RISK 7.1 - 11.0 MODERATE RISK >11.0 HIGH RISK Performing Lab:see note - [facility] LBINSULIN Reviewed date:02/10/2025 01:09:13 PM Interpretation: Performing Lab: Notes/Report: [facility] ,Qordpsd11.22.6-24.9 uIU/mL Performed at: - Lab[address] [id number] Commercial Loan Officer: Mio Calderon PhD, Phone: [phone] Performing Lab:see noteLC - [facility] LBGLYCOHEMOGLOBIN A1C Reviewed date:02/09/2025 08:23:51 PM Interpretation: Performing Lab: Notes/Report: [facility] ,Glycohemoglobin A1C5.84.5-6.2 % ADA RECOMMENDED LIMIT 4.0 - 6.0 ADA THERAPEUTIC TARGET < 7.0 ACTION SUGGESTED > 7.0 Estimated Average Rdeuedp393Faqkyurswt Lab:see noteML - [facility] FREE T3 Reviewed date:02/09/2025 08:23:51 PM Interpretation: Performing Lab: Notes/Report: [facility] ,Free T33.042.18-3.98 pg/mLPerforming Lab:see note - [facility] COVID-19, Flu A+B IH Reviewed date:02/09/2025 08:23:51 PM Interpretation: Performing Lab: Notes/Report: COVID+FLU A-FLU B-Control+Occult Blood* Reviewed date:02/14/2025 11:43:39 AM Interpretation: Performing Lab: Notes/Report: [facility] ,Occult BloodPositivePerforming Lab:see note - [facility] Reason For Referral Diagnosis 1 Other fecal abnormal ities (R19.5) Referral Organization [facility] Referring Provider First Name Luis Referring Provider Last Name Dasha Referring Provider Speciality [facility] sherine Referred Provider Akhil Villegas Referred Provider Specialty General Surg brianda Referral Priority Routine Medications Medication SIG (Take, Route, Frequency, Duration) Notes Start Date End Date Status Mirtazapine 30 MG 1 tablet Orally at bedtime; Du ration: 90 days ActiveAspirin 81 81 MG1 tablet Orally Once a day; Duration: 30 day(s)04/09/2024 ActiveCarvedilol 6.25 MGTAKE 1 TABLET BY MOUTH TWICE A DAY WITH FOOD; Duration: 30 daysActiveCrestor 20 MG1 tablet Orally Once a day; Duration: 30 days 04/09/2024ctiveLosartan Potassium-HCTZ 100-25 MGTAKE 1 TABLET ONCE DAILY; Duration: 90 daysActive Immunizations Vaccine Route Administration Date Status Comme nts Tdap (Adacel) IM Intramuscular 09/12/2023 Administered Social History Tobacco Use: Social History Observation Description Date Details (start date - stop date) Never Smoker NA - NA Tobacco Use/Smoking Question Answer Notes Patient is a nonsmoker AUDIT-C (Standard) Question Answer Notes Did you have a drink containing alcohol in the p ast year? No Mikewg3YfushxrxwebayoTgpfklvs Problems Problem Type SNOMED Code ICD Code Onset Dates Problem Status W/U Status Risk Notes Problem Essential hypertension (42422560 ) Essential (primary) hypertension (I10) ActiveconfirmedProblemMixed hyperlipidemia (394822858)Mixed hyperlipidemia (E78.2)ActiveconfirmedProblemIrritable bowel syndrome (02477615)Irritable bowel syndrome without diarrhea (K58.9)ActiveconfirmedProblemCarbuncle (139421304) Carbuncle, unspecified (L02.93)ActiveconfirmedProblemBradycardia (76977518) Bradycardia, unspecified (R00.1)ActiveconfirmedProblemWell child visit (034298948)Well child check (Z00.129)ActiveconfirmedProblemNeck pain (30443633) Neck pain (M54.2)ActiveconfirmedProblemCellulitis (908269252)Cellulitis (L03.90) ActiveconfirmedProblemArthralgia of temporomandibular joint (16568519)Arthralgia of temporomandibular joint, unspecified side (M26.629)Activeconfirmed Vital Signs Temperature 99.7 degrees Fahrenheit 10/23/2024 Blood pressure fzearycbx83 mm Hg10/23/20250580Retufk36 in10/23/2025lood pressure ianjwqvf970 mm Hg10/23/20255655Kyalve000.4 lbs112/24/2024BMI30.88 kg/m210/23/2025 Encounters Encounter Location Date Provider Diagnosis [facility] [address] [place] [address] 10/23/2024 Luis Lou Cough R05.9 [facility] [address] [place] [address] 11/03/2024 Luis Lou [facility] [place] [address] 01/13/2025Doug HoyEssential (primary) hypertension G18KucxvbiDelta County Memorial Hospital[address] [place] [address]/Doug [facility] [place] [address]/ Luis HoyAbnormal results of thyroid function studies R94.6[facility] [place] [address]/Doug [facility] [place] [address]/ Luis HoyOther fecal abnormalities R19.5[place] [address] [place] [address]/Doug HoyWellness examination Z00.00 ; Essential (primary) hypertension I10 ; Screening for colon cancer Z12. 11 and Screening for prostate cancer Z12.5BJess[address] [place] [address] [place] [address]/Doug [facility] SystemWell [facility] Z00.129 [place] [address] [place] [address] 01/13/2025[facility] [place] [address]/03/2025Doug HoyNeck pain M54.2BPe[facility] [address] [place] [address]/oug HoyCough R05.9 and COVID-19 079.89[facility] [place] [address]Doug HoyEssential (primary) hypertension X09ZjeohejSamantha [place] [address] [place] [address]/04/2025Doug Hoy Essential (primary) hypertension I10 and Well adult Z00.00[place] [address] [place] [address]/[facility] [place] [address]/ Luis HoyEssential (primary) hypertension I10 Assessments Encounter Date Diagnosis (ICD Code) Assessment Notes Treatment Notes Treatment Clinical Notes Section Notes 10/23/2024 Cough (ICD-10 - R05.9) 10/23/2024OVID-19 (ICD9-CM - 079.89)11/03/2024Neck pain (ICD-10 - M54.2)us soft tissue neck if not better - marker over area of pain01/05/2025Essential (primary) hypertension (ICD-10 - I10)02/02/2025Essential (primary) hypertension (ICD-10 - I10)02/02/2025Well adult (ICD-10 - Z00.00)02/10/2025Essential (primary) hypertension (ICD-10 - I10)10/23/2025Well child check (ICD-10 - Z00.129)10/23/2024ough (ICD-10 - R05.9)01/13/2025Essential (primary) hypertension (ICD-10 - I10)02/09/2025bnormal results of thyroid function studies (ICD-10 - R94.6)02/14/2025Other fecal abnormalities (ICD-10 - R19.5) 10/19/2025Wellness examination (ICD-10 - Z00.00)10/19/2025Essential (primary) hypertension (ICD-10 - I10)10/19/2025Screening for colon cancer (ICD-10 - Z12.11)10/19/2025Screening for prostate cancer (ICD-10 - Z12.5) Plan Of Treatment Pending Test Test Name Order Date HEMOGLOBIN A1C (GLYCO) 02/02/2025 HEMOGLOBIN A1C (GLYCO) 10/23/2025 INSULIN, TOTAL 10/23/2025 INSULIN, TOTAL 02/02/2025 LIPID PANEL (CHOL/TRIG/HDL/LDL) 02/03/20 25 LIPID PANEL (CHOL/TRIG/HDL/LDL) 10/23/20 25 URIC ACID 10/23/2025 CBC 10/19/2025 CMP - Comprehensive Metabolic Panel 09/29 STOOL OCCULT BLOOD 02/02/2025 GLYCOHEMOGLOBIN A1C 10/19/2025 LIPID PROFILE 10/19/2025 TESTOSTERONE, TOTAL 02/02/2025 XR HAND LT MIN 3V 09/12/2023 THYROID PANEL (T4/TSH/FREE T3) THYROID PANEL (T4/TSH/FREE T3) THYROID PANEL (T4/TSH/FREE T3) THYROID PANEL (T4/TSH/FREE T3) PSA, SCREENING 10/19/2025 PSA, SCREENING 10/23/2025 PSA, SCREENING 02/02/2025 CMP (COMP MET BRANDON) w/eGFR CKD-EPI 2024 CMP (COMP MET BRANDON) w/eGFR CKD-EPI 2024 CBC WITH DIFF 10/23/2025 CBC WITH DIFF 02/02/2025 Insurance Providers Payer Name Payer Address Payer Phone Subscriber Number Group Number Insured Name Patient Relationship to Insured Coverage Start Date Coverage End Date [facility] [address] [place], [place] [id number] Tree Helms Self - patient is the insured Medications Administered Medication Instructions Date of Administration Dosage Notes Ketorolac Tromethamine 560 mgTriamcinolone 40 mg/ml560 mg Medical (General) History Medical History History ICD Code Essential Hypertension I10 IBS (irritable bowel syndrome) K58.9 Bradycardia R00.1 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
--- OUTSIDE RECORDS SUMMARY | 2025-10-23 08:50 | XMS_ITS | Clinical Summary ---
Author Organization [facility] Address [address] [place] [address] Care Team Providers Care Metallurgical Engineer Name Role Phone Danial Lou MD Primary Care Provider [phone] Allergies Active AllergyReactionsCriticalityNoted XobqMvlyfuijNenukfjakhweNtgth97/07/2024 myalgias Medications MedicationSigDispense QuantityRefillsLast FilledStart DateEnd DateStatus losartan-hydrochlorothiazide (Hyzaar) 100-25 mg tablet Take 1 tablet by mouth in the morning.01/16/2023ctive mirtazapine (Remeron) 30 mg tablet Take 30 mg by mouth at bedtime.12/04/2022ctive aspirin 81 mg EC tablet Take 81 mg by mouth in the morning.Active rosuvastatin (Crestor) 20 mg tablet Indications:Hyperlipidemia, unspecified hyperlipidemia typeTake 1 tablet (20 mg) by mouth in the morning. 90 tablet 4Active carvedilol (Coreg) 6.25 mg tablet Take 6.25 mg by mouth with breakfast and with evening meal.Active latanoprost (Xalatan) 0.005 % ophthalmic solution INSTILL 1 DROP INTO BOTH EYES ONCE A DAY AT VLRFTMM75/25/2025Active timolol (Timoptic) 0.5 % ophthalmic solution INSTILL 1 DROP INTO BOTH EYES IN THE UPRJQMB70/25/2025Active amLODIPine (Norvasc) 5 mg tablet Indications:Benign essential HTNTake 1 tablet (5 mg) by mouth in the morning. 90 tablet 306506/6Active metoprolol tartrate (Lopressor) 50 mg tablet Indications:Shortness of breath,Abnormal cardiovascular stress test1 pill [address] scan 1 tablet 6065Active Active Problems ProblemNoted DateDiagnosed PrtoMoaujlbqtn57bnormal cardiovascular stress test02/21/2023 Assessment & Plan (02/21/2023 3:56 PM EDT): Treadmill stress test with abnormal EKG with noted 2mm depression/downsloaping of inferolateral leads without any symptoms voiced. Normal myocardial perfusion No concerning symptoms today- but noted c/o chest pain to PCP that initiated stress test. Family h/o CAD with father and sister, noted HTN and HPL Will start lipitor 40 mg daily and order echocardiogram to assess cardiac function or wall motion abnormalities. Mixed hpuumbwknrkjam11/26/2023 Assessment & Plan (02/21/2023 3:59 PM EDT): LDL 122.4 and ASCVD calculated 10 year risk of CVD 8.5%; or 10 year risk of CVD with optimal risk factor medication is 4.3% or lifetime risk is 50% Start moderate intensity statin- lipitor 40 mg daily D/W pt to monitor for muscle aches/joint discomfort and to call office Repeat LFT and lipid level in 2-3 months Benign essential HTN02/21/2023 Assessment & Plan (02/21/2023 4:00 PM EDT): Hypertension is elevated today but he did not take medication today Continue losartan/HCTZ Renal function normal Ltedtnewa30/03/3907Vaxvjpfzixo58/03/2004 Family History Medical HistoryRelationNameCommentsCABGFatherCoronary artery diseaseFather Coronary artery diseasePaternal GrandfatherCABGSisterCoronary artery disease SisterRelationNameStatusCommentsFatherPaternal GrandfatherSister Social History Tobacco UseTypesPacks/DayYears UsedDateSmoking Tobacco: NeverSmokeless Tobacco: Never Tobacco Cessation:Counseling Given: Not Answered Alcohol UseStandard Drinks/WeekCommentsYes0 (1 standard drink = 0.6 oz pure alcohol)occasionalHumiliation, Afraid, Rape, and Kick questionnaireAnswerDate RecordedWithin the last year, have you been afraid of your partner or ex-partner?No04/10/2025Emotionally AbusedNot on file04/10/2025Physically Abused Not on file04/10/2025Sexually AbusedNot on file04/10/2025PHQ-2AnswerDate RecordedPatient Health Questionnaire-2 Pohdx353UT Safety & Environment AnswerDate RecordedFear of Current or Ex-PartnerNot on 12/20/2023Emotionally AbusedNot on file12/20/2023hysically AbusedNot on file12/20/2023Sexually Abused Not on 12/20/2023hysically or Sexually AbusedNot on file12/20/2023Sex and Gender InformationValueDate RecordedSex Assigned at OlcksVbsz97/13/2025 8:20 AM EDTLegal CweDdow7202/13/2023 8:55 AM EDTGender JcxvzvouDfap00/13/2025 8:20 AM EDT Sexual OrientationChoose not to hkimjdfs39/13/2025 8:20 AM EDT Last Filed Vital Signs Vital SignReadingTime TakenCommentsBlood Crojtfhk583/70006/10/2025 8:30 AM EDT Tirtb140506/10/2025 8:30 AM EDTTemperature--Respiratory Idfi992106/10/2025 8:30 AM EDTOxygen Nwpbwoagly51%06/10/2025 7:45 AM EDTInhaled Oxygen Concentration-- Kmxqrg80.3 kg (219 lb)04/10/2025 8:34 AM GPPCcwhsn962.3 cm (5' 11 )04/10/2025 8:34 AM EDTBody Mass Index30.5406 8:34 AM EDT Plan of Treatment Health MaintenanceDue DateLast DoneCommentsCT Gyqjxtpzhacg1965FIT-DNA 1965FIT1965FOBT1965 7478Wagseiyrdkege1965Hepatitis B Vaccines (1 of 3 - 19+ 3-dose series)1984Adult Muvetmt1010/27/1987Zoster Vaccines (1 of 2)2015COVID-19 Vaccine (3 - 2024- season)/, 01/03/2021Influenza Vaccine (#1)0/2Depression Screening 606/4524Hmndxcuxvns10/09/203506/5Colorectal Cancer Screening 04/06/2035HIB VaccinesAged OutNo longer eligible based on patient's age to complete this topicHPV VaccinesAged OutNo longer eligible based on patient's age to complete this topicIPV VaccinesAged OutNo longer eligible based on patient's age to complete this topicMeningococcal B VaccineAged OutNo longer eligible based on patient's age to complete this topicMeningococcal VaccineAged OutNo longer eligible based on patient's age to complete this topicPneumococcal Vaccine: Pediatrics (0 to 5 Years) and At-Risk Patients (6 to 64 Years)Aged Out No longer eligible based on patient's age to complete this topicRotavirus VaccinesAged OutNo longer eligible based on patient's age to complete this topic Insurance Care Teams Team MemberRelationshipSpecialtyStart DateEnd Danial Lou MD [address] [facility] [address] [address] [facility]02/20/23
[2025-10-23 09:50] LABS: Hematocrit 42.5 % (42.0-54.0); Hemoglobin 14.7 g/dL (14.0-18.0); Immature Granulocytes Abs Auto 0.02 10^3/uL (0.00-0.03); Immature Granulocytes Pct Auto 0.3 % (0.0-0.5); Lymphocytes Absolute Auto 1.7 10^3/uL (1.2-3.8); Mean Corpuscular HGB Conc 34.6 g/dL (29.9-35.2); Mean Corpuscular Hemoglobin 30.4 pg (25.9-34.0); Mean Corpuscular Volume 87.8 fL (80.0-94.0); Platelet Count 152 10^3/uL (150-450); Red Blood Count 4.84 10^6/uL (4.70-6.10); White Blood Count 6.6 10^3/uL (4.0-11.0)
[2025-10-23 10:17] LABS: Alanine Aminotransferase 42 U/L (16-63); Albumin Globulin Ratio 1.4; Albumin Level 3.9 g/dL (3.4-5.0); Alkaline Phosphatase 66 U/L (46-116); Anion Gap 7.0; Aspartate Amino Transferase 18 U/L (15-37); Blood Urea Nitrogen 11.0 mg/dL (7.0-18.0); Calcium 9.0 mg/dL (8.5-10.1); Carbon Dioxide 32.2 mmol/L (21.0-32.0); Chloride 106 mmol/L (98-107); Cholesterol 136 mg/dL (<=200); Estimated GFR (African America >60 (>=60 mL/min/1.73m^2); Estimated GFR (Non-African Ame >60 (>=60 mL/min/1.73m^2); Free T3 2.84 pg/mL (2.18-3.98); Globulin 2.7 g/dL; Glucose 118 mg/dL (74-106); HDL Cholesterol 55 mg/dL (40-60); Potassium 4.2 mmol/L (3.5-5.1); Sodium 141 mmol/L (136-145); Thyroid Stimulating Hormone 1.949 uIU/mL (0.358-3.740); Total Protein 6.6 g/dL (6.4-8.2); Triglycerides 64 mg/dL (<=150); Uric Acid 5.4 mg/dL (3.5-7.2); VLDL CHOLESTEROL 12.8 mg/dL
== END 2025-10-23 08:47 | disposition home or self-care (01) ==
LOC: LAB 08:47
PROVIDERS: PCP Family Medicine; Visit Provider Family Medicine
DX: Z00.00 Encounter for general adult medical examination without abnormal findings (principal); Z12.5 Encounter for screening for malignant neoplasm of prostate
CPT/HCPCS: 36415; 80053; 80061; 83036; 83525; 84436; 84443; 84481; 84550; 85025; G0103